=== PATIENT | female | born 1930 | race Caucasian/White ===

== ENCOUNTER 2016-10-20 13:21 | Emergency (ER) | payer MEDICARE, OTHER ==
[2016-10-20 13:54] LABS: Hemoglobin 8.7 gm/dL (12.5-16.0); Mean Cell Volume 81.5 fl (78-100); Mean Corpuscular Hemoglobin 24.4 pg (27-31); Mean Platelet Volume 8.4 fl (6.0-9.5); Neutrophil # 10.8 K/mm3 (1.3-6.0); Neutrophil % 83.5 % (42-75.0); Platelet Count 417 K/mm3 (150-450); Red Blood Count 3.56 M/mm3 (4.2-5.4); Red Cell Distribution Width 15.3 % (11.5-14.0)
[2016-10-20 14:11] LABS: Albumin * 3.4 gm/dl (3.4-5.0); Anion Gap 11.2 mmol/L (6.8-13.8); BUN/Creatinine Ratio 12.2 (9.0-21.6); Bilirubin, Total 0.2 mg/dL (0.0-1.1); Ca. Corrected For Albumin 9.3 mg/dL (8.4-10.2); Calcium * 9.1 mg/dL (7.9-10.9); Carbon Dioxide 30.1 mmol/L (24-32.6); Potassium 4.3 mmol/L (3.4-4.6)
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
[2016-10-20 14:46] LABS: Urine Bilirubin Negative (NEGATIVE); Urine Blood Negative /ul (NEGATIVE); Urine Ketone Negative (NEGATIVE); Urine Protein Negative (NEGATIVE); Urine Specific Gravity 1.025 SP.GR. (1.005-1.010); Urine Urobilinogen Normal (NORMAL)
[2016-10-20 14:55] LABS: Urine Appearance Cloudy; Urine Color Yellow; Urine Nitrite Positive (NEGATIVE)
[2016-10-20 14:56] LABS: Urine Bacteria 4+; Urine RBC None Seen /hpf (0-5)
[2016-10-20 16:56] VITALS: BP 158/63
== END 2016-10-20 17:42 | disposition short-term general hospital (02) ==
LOC: ER 13:21
DX: N30.00 Acute cystitis without hematuria (principal)

== ENCOUNTER 2017-03-23 10:22 | Inpatient (IN) | payer MEDICARE, OTHER ==
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
[2017-03-23 11:14] LABS: Hematocrit 38.6 % (37.0-47.0); Hemoglobin 12.9 gm/dL (12.5-16.0); Mean Cell Volume 97.5 fl (78-100); Mean Corpuscular Hemoglobin 32.6 pg (27-31); Mean Corpuscular Hgb Conc 33.4 g/dl (32-36); Neutrophil # 6.1 K/mm3 (1.3-6.0); Neutrophil % 69.4 % (42-75.0); Platelet Count 327 K/mm3 (150-450); Red Blood Count 3.96 M/mm3 (4.2-5.4); Red Cell Distribution Width 12.7 % (11.5-14.0); White Blood Count 8.8 K/mm3 (4.0-10.5)
[2017-03-23 11:28] LABS: Albumin * 3.3 gm/dl (3.4-5.0); Anion Gap 8.6 mmol/L (6.8-13.8); Bilirubin, Total 0.2 mg/dL (0.0-1.1); Ca. Corrected For Albumin 9.2 mg/dL (8.4-10.2); Carbon Dioxide 31.8 mmol/L (24-32.6); Potassium 4.4 mmol/L (3.4-4.6); Total Protein 6.5 gm/dL (6.2-8.2)
[2017-03-23] MEDS ORDERED: HYDROmorphone HCL 1 MG/ML DISP.SYRIN IV ONE (11:35)
[2017-03-23] MEDS ORDERED: HYDROmorphone HCL 2 MG/ML VIAL ONE (12:01)
[2017-03-23 12:03] LABS: Urine Appearance Cloudy; Urine Color Yellow
[2017-03-23 12:05] LABS: Urine Bacteria 2+; Urine Bilirubin Negative (NEGATIVE); Urine Blood Negative /ul (NEGATIVE); Urine Ketone Negative (NEGATIVE); Urine Nitrite Negative (NEGATIVE); Urine Protein Negative (NEGATIVE); Urine RBC None Seen /hpf (0-5); Urine Urobilinogen Normal (NORMAL); Urine WBC 0-5 /hpf (0-5)
[2017-03-23] MEDS ORDERED: KETOROLAC TROMETHAMINE 30 MG/ML VIAL ONE (12:14)
--- NOTE | 2017-03-23 12:29 | HP ---
Chief Complaint - Chief Complaint Date of Service: 03/23/17 Time of Service: 12:24 Chief Complaint: fall/left hip pain History of Present Illness: Hanna Sumner, is an 86-year-old white female, resident of the [facility], patient of Dr. Hoover, with past medical history of Alzheimer's dementia, anxiety depression, hyperlipidemia who was admitted on 03/23/2017 because of a fall and left hip pain. Earlier this morning the patient was in on her recliner when she was told that it was time to do her exercises. She stood up and as she was going to her walker, lost her balance and fell down. She immediately had left hip pain and couldn't stand by herself. She was brought to our emergency room where she was found to have a left intertrochanteric fracture on x-ray. She was then admitted for further orthopedic intervention. - Patient's Past Medical History Patient History - Medical: No pertinent hx, Alzheimer's Disease, Dementia, Depression Patient History - Cardiac/Respiratory: COPD, Hyperlipidemia - Social History Living Situations: long term Psych History: Hx of Depression Smoking Status: Current some day smoker Alcohol Use: none Drug Use: none - Immunizations Immunizations Up to Date: Yes Hx Pneumococcal Vaccination: More Information Required to Determine History of Influenza Vaccine: More Information Required to Determine Review Of Systems (GEN) - Review of Systems Generalized/Overall Review: Absent: Weakness, Chills, Fever EENTM: Present: No Symptoms Reported Respiratory: Absent: Cough, Shortness of Breath Cardiac: Absent: Chest Pain, Edema, Palpitations Abdominal: Absent: Nausea, Vomiting Genitourinary: Absent: Urgency, Frequency Musculoskeletal: Present: Joint Pain Immunizations: IMMUNIZATION HX Immunizations Up to Date Yes History of Influenza Vaccine More Information Required Hx Pneumococcal Vaccination More Information Required Allergies/Adverse Reactions: Allergies Allergy/AdvReac Type Severity Reaction Status Date / Time No Known Allergies Allergy Verified 10/20/16 13:28 Home Medications: HOME MEDICATIONS Acetaminophen 500 mg PO BID PRN 03/23/17 [Last Taken Unknown] Ascorbic Acid [Vitamin C] 500 mg PO DAILY 03/23/17 [Last Taken Unknown] Aspirin [Aspirin Chewable] 81 mg PO DAILY 03/23/17 [Last Taken Unknown] Calcium Carbonate/Vitamin D3 [Calcium 600 + D3 Softgel] 1 each PO 03/23/17 [ Last Taken Unknown] Cholecalciferol (Vitamin D3) [Vitamin D3] 1,000 unit PO DAILY 03/23/17 [Last Taken Unknown] Citalopram Hydrobromide [Citalopram HBr] 20 mg PO 03/23/17 [Last Taken Unknown] Cyanocobalamin [Vitamin B-12] 1,000 mcg PO DAILY 03/23/17 [Last Taken Unknown] Donepezil HCl [Aricept] 5 mg PO 03/23/17 [Last Taken Unknown] Erythromycin Ethylsuccinate [E.e.s. 400] 400 mg PO 03/23/17 [Last Taken Unknown] Ferrous Sulfate [Iron] 325 mg PO 03/23/17 [Last Taken Unknown] Folic Acid 1 mg PO DAILY 03/23/17 [Last Taken Unknown] Melatonin 1 mg PO HS PRN 03/23/17 [Last Taken Unknown] [place]-3 Fatty Acids/Fish Oil [Fish Oil 1,000 mg Capsule] 1 each PO DAILY [Last Taken Unknown] traMADol HCL [Tramadol HCl] 25 mg PO 03/23/17 [Last Taken Unknown] Exam - Exam Vital Signs: Vital Signs - Last Taken Temp 36.5 C 03/23/17 10:24 Pulse 69 03/23/17 11:35 Resp 26 H 03/23/17 11:35 BP 187/72 03/23/17 11:35 Pulse Ox 95 03/23/17 11:35 Constitutional: Present: Alert, Oriented x3, Cooperative, Elderly ENT Exam: Present: hearing grossly normal Eye Exam: bilateral eye: normal inspection, PERRL, EOMI Neck: Present: supple Back Exam: Present: normal inspection Respiratory: Present: normal breath sounds, No rales, No wheezing Cardiovascular/Chest: Present: regular rate, rhythm, no JVD, no murmur Abdomen: Present: Normal bowel sounds, soft, nontender, nondistended Extremity: Present: no calf tenderness, pedal edema Diagnostic Studies: Abnormal Lab Results 03/23/17 Range/Units 11:46 Urine Bacteria 2+ H (NONE) Laboratory Results WBC 8.8 K/mm3 (4.0-10.5) 03/23/17 11:00 RBC 3.96 M/mm3 (4.2-5.4) L 03/23/17 11:00 Hgb 12.9 gm/dL (12.5-16.0) 03/23/17 11:00 Hct 38.6 % (37.0-47.0) 03/23/17 11:00 MCV 97.5 fl (78-100) 03/23/17 11:00 MCH 32.6 pg (27-31) H 03/23/17 11:00 MCHC 33.4 g/dl (32-36) 03/23/17 11:00 RDW 12.7 % (11.5-14.0) 03/23/17 11:00 Plt Count 327 K/mm3 (150-450) 03/23/17 11:00 MPV 9.0 fl (6.0-9.5) 03/23/17 11:00 Immature Gran % (Auto) 0.60 % (0.001-0.429) H 03/23/17 11:00 Immature Gran # (Auto) 0.05 K/mm3 (0.000-0.0310) H 03/23/17 11:00 Neutrophils % 69.4 % (42-75.0) 03/23/17 11:00 Lymphocytes % 18.2 % (20-51) L 03/23/17 11:00 Monocytes % 9.7 % (0.0-9) H 03/23/17 11:00 Eosinophils % 1.3 % (0.0-3.0) 03/23/17 11:00 Basophils % 0.8 % (0.0-1.0) 03/23/17 11:00 Nucleated RBC % 0.0 k/mm3 (0-1) 03/23/17 11:00 Neutrophils # 6.1 K/mm3 (1.3-6.0) H 03/23/17 11:00 Lymphocytes # 1.6 k/mm3 (1.5-3.5) 03/23/17 11:00 Monocytes # 0.9 k/mm3 (0.0-1.0) 03/23/17 11:00 Eosinophils # 0.1 k/mm3 (0.0-0.7) 03/23/17 11:00 Absolute Basophils 0.1 k/mm3 (0.0-0.1) 03/23/17 11:00 Sodium 142 mmol/L (132-142) 03/23/17 11:00 Plasma Sodium 142 mmol/L (130-142) 03/23/17 11:00 Potassium 4.4 mmol/L (3.4-4.6) 03/23/17 11:00 Chloride 106 mmol/L (97-106) 03/23/17 11:00 Carbon Dioxide 31.8 mmol/L (24-32.6) 03/23/17 11:00 Anion Gap 8.6 mmol/L (6.8-13.8) 03/23/17 11:00 BUN 10 mg/dL (3-23) 03/23/17 11:00 Creatinine 0.91 mg/dL (0.4-1.4) 03/23/17 11:00 Est GFR (Non-Af Amer) 62 mL/min (60-130) 03/23/17 11:00 BUN/Creatinine Ratio 11.0 (9.0-21.6) 03/23/17 11:00 Random Glucose 96 mg/dL (70-110) 03/23/17 11:00 Calcium 9.0 mg/dL (7.9-10.9) 03/23/17 11:00 Calcium Adj for Albumin 9.2 mg/dL (8.4-10.2) 03/23/17 11:00 Total Bilirubin 0.2 mg/dL (0.0-1.1) 03/23/17 11:00 AST 17 U/L (0-48) 03/23/17 11:00 ALT 18 U/L (19-67) L 03/23/17 11:00 Alkaline Phosphatase 95 U/L (50-170) 03/23/17 11:00 Total Protein 6.5 gm/dL (6.2-8.2) 03/23/17 11:00 Albumin 3.3 gm/dl (3.4-5.0) L 03/23/17 11:00 Urine Color Yellow 03/23/17 11:46 Urine Appearance Cloudy 03/23/17 11:46 Urine pH 6.0 pH (5.0-7.0) 03/23/17 11:46 Ur Specific [place] 1.020 SP.GR. (1.005-1.010) 03/23/17 11:46 Urine Protein Negative mg/dL (NEGATIVE) 03/23/17 11:46 Urine Glucose (UA) Negative mg/dL (NEGATIVE) 03/23/17 11:46 Urine Ketones Negative mg/dL (NEGATIVE) 03/23/17 11:46 Urine Blood Negative /ul (NEGATIVE) 03/23/17 11:46 Urine Nitrate Negative (NEGATIVE) 03/23/17 11:46 Urine Bilirubin Negative mg/dl (NEGATIVE) 03/23/17 11:46 Urine Urobilinogen Normal EU/dl (NORMAL) 03/23/17 11:46 Ur Leukocyte Esterase Negative /ul (NEGATIVE) 03/23/17 11:46 Urine RBC None seen /hpf (0-5) 03/23/17 11:46 Urine WBC 0-5 /hpf (0-5) 03/23/17 11:46 Ur Epithelial Cells None seen /hpf (0-5) 03/23/17 11:46 Urine Bacteria 2+ (NONE) H 03/23/17 11:46 Urine Culture Comments No culture indicated 03/23/17 11:46 Assessment/Plan - Assessment/Plan (1) Hip fracture Assessment: left intertrochanteric fracure. Her CXR no acute cardiopulmonary findings, EKG showed NSR with LVH, CBC, CMP were essentially WNL. She is medically stable to undergo anticipated proceedure of CRIF of her left hip fracture. Problem: Acute Qualifiers: Encounter type: initial encounter Fracture type: closed Laterality: left Qualified Code(s): S72.002A - Fracture of unspecified part of neck of left femur, initial encounter for closed fracture (2) Dementia Assessment: continue with home medications Problem: Acute Qualifiers: Dementia type: Alzheimer's disease (3) Hyperlipidemia Assessment: continue with home medications Problem: Acute (4) Depression Assessment: continue with home medications. Problem: Acute
[2017-03-23] MEDS ORDERED: Melatonin 1 MG PO PRN (12:40)
[2017-03-23] MEDS ORDERED: traMADol HCL 50 MG TABLET PO PRN (12:40)
[2017-03-23] MEDS ORDERED: ACETAMINOPHEN 500 MG TABLET PO PRN (12:45)
[2017-03-23] MEDS ORDERED: FLU VACC QS2017-18(6MOS UP)/PF 60 MCG/0.5 ML SYRINGE IM ONE (14:51)
[2017-03-23] MEDS: HYDROmorphone HCL 2 MG/ML VIAL IV PRN (16:05)
[2017-03-24] MEDS: HYDROmorphone HCL 2 MG/ML VIAL IV PRN ×3 (02:01→14:20)
[2017-03-24] MEDS: NORMAL SALINE 1,000 ML IV PRN ×2 (06:48→10:40)
[2017-03-24] MEDS: FOLIC ACID 1 MG TABLET PO SCH (08:50)
[2017-03-24] MEDS: CITALOPRAM HYDROBROMIDE 20 MG TABLET PO SCH (08:50)
[2017-03-24] MEDS: DONEPEZIL HCL 10 MG TABLET PO SCH (08:50)
[2017-03-24] MEDS: CYANOCOBALAMIN 1,000 MCG TABLET PO SCH (08:50)
--- NOTE | 2017-03-24 09:14 | PN ---
Subjective - Date and Time Seen Date: 03/24/17 Time: 09:12 Subjective Narrative: She is awaiting surgery today. She says her hip hurts. Objective - Review of Systems Generalized/Overall Review: Denies: Chills, Fever EENTM: Reports: No Symptoms Reported Respiratory: Denies: Cough, Shortness of Breath Cardiac: Denies: Chest Pain, Edema, Palpitations Abdominal: Denies: Nausea, Vomiting Genitourinary Symptoms: Denies: Urgency, Frequency Musculoskeletal Complaints: Reports: Joint Pain - Vitals Vitals: Last Vital Signs Temp 36.8 C 03/24/17 06:00 Pulse 88 03/24/17 06:00 Resp 18 03/24/17 06:00 BP 156/63 03/24/17 06:00 Pulse Ox 97 03/24/17 06:00 - Abnormal Lab Findings Abnormal Lab Findings: Abnormal Lab Results 03/23/17 Range/Units 11:46 Urine Bacteria 2+ H (NONE) - Exam Constitutional: Present: Alert, Oriented x3, Cooperative ENT Exam: Present: hearing grossly normal Neck: Present: supple Respiratory: Present: decreased breath sounds, No rales, No wheezing Cardiovascular/Chest: Present: regular rate, rhythm, no JVD, no murmur Abdomen: Present: soft, nontender, nondistended Extremity: Present: no pedal edema, no calf tenderness Cauti Physician Documentation - Urinary Catheter Management Urethral (Armendariz) Date of Insertion: 03/23/17 Time of Insertion: 11:35 Assessment/Plan - Problems/Diagnosis (1) Hip fracture Problem: Acute Qualifiers: Encounter type: initial encounter Fracture type: closed Laterality: left Qualified Code(s): S72.002A - Fracture of unspecified part of neck of left femur, initial encounter for closed fracture Narrative: for surgery today (2) Dementia Problem: Acute Qualifiers: Dementia type: Alzheimer's disease (3) Hyperlipidemia Problem: Acute (4) Depression Problem: Acute
[2017-03-24] MEDS ORDERED: ceFAZolin SODIUM 1 GM in DEXTROSE 5 % IN WATER 100 ML IV ONE ×2 (09:51)
--- NOTE | 2017-03-24 10:03 | CONS ---
[facility] - General Date of Service: 03/24/17 Narrative: Consultation for left hip fracture. Patient's 86-year-old female is a resident of [facility] who sustained a fall at there facility. Hanna has not a good historian. She reported left hip pain and ability to ambulate. She was brought into the emergency department and found to have left hip fracture. She is admitted for pain control and treatment. - History of Present Illness Allergies/Adverse Reactions: Allergies No Known Allergies Allergy (Verified 03/23/17 14:03) Home Medications: Home Medications Medication Instructions Recorded Last Taken Acetaminophen 1,000 mg PO BID PRN 03/23/17 Unknown Ascorbic Acid [Vitamin C] 500 mg PO DAILY 03/23/17 Unknown Aspirin [Aspirin Chewable] 81 mg PO DAILY 03/23/17 Unknown Calcium Carbonate/Vitamin D3 1 each PO DAILY 03/23/17 Unknown [Calcium 600 + D3 Softgel] Cholecalciferol (Vitamin D3) 1,000 unit PO DAILY 03/23/17 Unknown [Vitamin D3] Citalopram Hydrobromide 20 mg PO DAILY 03/23/17 Unknown [Citalopram HBr] Cyanocobalamin [Vitamin B-12] 1,000 mcg PO DAILY 03/23/17 Unknown Donepezil HCl [Aricept] 5 mg PO HS 03/23/17 Unknown Erythromycin Ethylsuccinate 400 mg PO DAILY 03/23/17 Unknown [E.e.s. 400] Ferrous Sulfate [Iron] 325 mg PO DAILY 03/23/17 Unknown Folic Acid 1 mg PO DAILY 03/23/17 Unknown Melatonin 1 mg PO HS PRN 03/23/17 Unknown [place]-3 Fatty Acids/Fish Oil [Fish 1,000 mg PO DAILY 03/23/17 Unknown Oil 1,000 mg Capsule] traMADol HCL [Tramadol HCl] 25 mg PO Q4H PRN 03/23/17 Unknown - Patient's Past Medical History Patient History - Medical: No pertinent hx, Alzheimer's Disease, Dementia, Depression Patient History - Cardiac/Respiratory: COPD, Hyperlipidemia Patient History - Cancer: No Hx of Cancer Patient History - Surgical Procedures: Appendectomy, Cholecystectomy, Colonoscopy Patient History - Other: None LMP (females 10-50): Menopausal - Family History Mother Family History - Medical: History Unknown Family History - Cardiac/Respiratory: History Unknown Family History - Cancer: History Unknown Father Family History - Medical: History Unknown Family History - Cardiac/Respiratory: History Unknown Family History - Cancer: History Unknown Sister Family History - Medical: History Unknown Family History - Cardiac/Respiratory: History Unknown Family History - Cancer: History Unknown - Social History Living Situations: detention Abuse History: No History of abuse Psych History: Hx of Depression Smoking Status: Current some day smoker Have you smoked in the past 12 months: Yes Do you dip or chew tobacco: No Patient requests Smoking Cessation Consult: No Initiate information on Smoking Cessation: No Alcohol Use: none Drug Use: none - Immunizations Immunizations Up to Date: Yes Hx Pneumococcal Vaccination: More Information Required to Determine History of Influenza Vaccine: More Information Required to Determine Medications - Medications Current Medications: Current Medications Citalopram Hydrobromide (Celexa) 20 mg PO DAILY JORGITO Stop: 04/23/17 09:01 Last Admin: 03/24/17 08:50 Dose: Not Given Cyanocobalamin (Vitamin B-12) 1,000 mcg PO DAILY JORGITO Stop: 04/23/17 09:01 Last Admin: 03/24/17 08:50 Dose: Not Given Donepezil HCl (Aricept) 5 mg PO DAILY JORGITO Stop: 04/23/17 09:01 Last Admin: 03/24/17 08:50 Dose: Not Given Folic Acid (Folic Acid) 1 mg PO DAILY JORGITO Stop: 04/23/17 09:01 Last Admin: 03/24/17 08:50 Dose: Not Given Hydromorphone HCl (Dilaudid) 1 mg IV Q4H PRN PRN Reason: Pain Stop: 04/22/17 12:45 Last Admin: 03/24/17 06:53 Dose: 1 mg Sodium Chloride (Sodium Chloride 0.9%) 1,000 mls @ 100 mls/hr IV .Q10H PRN PRN Reason: HYDRATION Stop: 04/23/17 06:41 Last Admin: 03/24/17 06:48 Dose: 100 mls/hr Physical Examination - Exam Narrative: Patient is alert. Not oriented. Examination of left lower extremity reveals 1 + dorsalis pedis pulse. She is able to wiggle her toes and plantarflex/ dorsiflex left ankle. She reports left groin pain with logroll test of the left lower extremity. She reports no pain in the foot ankle or lower leg with palpation. Left hip films show intertrochanteric hip fracture. Vital Signs: Vital Signs - Last Taken Temp 36.8 C 03/24/17 06:00 Pulse 88 03/24/17 06:00 Resp 18 03/24/17 06:00 BP 156/63 03/24/17 06:00 Pulse Ox 97 03/24/17 06:00 O2 Oxygen Delivery Method Room Air - Results and Findings: Lab/Microbiology results last 24 hrs: Abnormal/Pending Laboratory Last 24 HRS 03/23/17 11:46 Urine Bacteria 2+ H Culture 03/23/17 13:25 - Final Nares MRSA Negative - Assessments/Findings (1) Hip fracture Diagnosis(s): Pending medical clearance cephalomedullary fixation, we'll obtain consents from power of regulatory attorney,will contact her daughter Dunia Alfrediffered [phone] regarding her mother's injury and treatment options, she will have a gram of Ancef preop. Problem: Acute Qualifiers: Encounter type: initial encounter Fracture type: closed Laterality: left Qualified Code(s): S72.002A - Fracture of unspecified part of neck of left femur, initial encounter for closed fracture (2) Dementia Problem: Chronic Qualifiers: Dementia type: Alzheimer's disease (3) Hyperlipidemia Problem: Chronic
[2017-03-24] MEDS ORDERED: RINGER'S SOLUTION,LACTATED 1,000 ML IV ONE (11:30)
[2017-03-24] MEDS ORDERED: MAG HYDROX/ALUMINUM HYD/SIMETH 30 ML UDC PO PRN (11:41)
[2017-03-24] MEDS ORDERED: ZOLPIDEM TARTRATE 5 MG TABLET PO PRN (11:41)
[2017-03-24] MEDS ORDERED: DEXTROSE 5%-LACTATED RINGERS 1,000 ML IV PRN (11:41)
[2017-03-24] MEDS ORDERED: MAGNESIUM HYDROXIDE 30 ML UDC PO PRN (11:41)
--- NOTE | 2017-03-24 11:45 | OR ---
Operative Report - Dictated Report Narrative: Date: 03/24/2017 Surgeon: Diego Jones M.D. Blister Pack Operator: Ashish Wang PA-C Preoperative diagnosis: Left Intertrochanteric femur fracture Postoperative diagnosis: Left Intertrochanteric femur fracture Operations and procedures: 1. Closed reduction, cephalo-medullary fixation left intertrochanteric femur fracture 2. Intraoperative interpretation of radiographs Anesthesia: Spinal Specimens: None Estimated blood loss: 50 Milliliters Retained implants: [employer] Trigen InterTAN 130 degree size 10 mm by 18 centimeter nail with 105 millimeter lag screw and 100 millimeter compression screw, with distal locking screw Complications: None Indications for procedure: Mrs. Sumner is a 86-year-old female who injured the left leg after ground- level fall. They were admitted to the hospital after being evaluated in the emergency department. Once the medical provider felt that they were stable for surgical treatment, the risks and benefits alternatives were discussed. The risks of , blood clots, bleeding, infection, nerve/tendon/blood vessel injury, malunion, nonunion, failure of implants, painful implants, arthrosis, and need for additional procedures were discussed. The extremity was marked and consent was obtained on the floor. Procedure: After marking the operative extremity on the floor, the patient was taken to the operating room. A timeout was performed. IV antibiotics consisting of Ancef were administered. A spinal anesthetic was induced by anesthesia, and the patient was then placed onto a fracture table with a well-padded perineal post. The nonoperative leg was placed in a well-padded traction boot in slight extension without any traction with an SCD on the leg. The operative leg was placed in a well-padded traction boot. Longitudinal traction, internal rotation , and flexion were utilized in order to reduce the fracture. Preliminary images were attained utilizing C-arm in both the AP and lateral views. This confirmed that we had obtained adequate visualization of the fracture as well as reduction. Next the hip was then prepped and draped in a standard sterile fashion. Next the guidewire was placed percutaneously proximal to the greater trochanter to diallo a starting point at the tip of the greater trochanter centered on the lateral view. This was passed down to the level below the lesser trochanter. A scalpel was utilized in order to dissect down to the greater trochanter in order to place the soft tissue protector down to bone. The entry drill was then placed down the proximal femur to the level of the lesser trochanter. The proper size nail was then selected and impacted into place. The outrigger was utilized in order to confirm the appropriate depth of the nail. Using the alignment device on the outrigger, a chanel incision was made over the lateral femur. Sharp dissection was carried through the iliotibial band down to the proximal femur. The guidewire was was placed into the femoral head in a center-center position on AP and lateral views. The tip-apex distance of less than 25 mm combined was obtained. Once we felt that we had placed a guidewire in the appropriate position, it was measured. Next the compression screw site was drilled through the lateral femoral cortex. This was then drilled down to the appropriate depth, again confirming that we are within the confines the bone. The derotational bar was then placed and the lag screw was drilled. The lag screw was then secured in place seating fully ensuring that we were within the confines of the bone. The compression screw was then inserted allowing for compression while releasing the traction on the leg. Using C-arm this was visualized to allow for compression across the fracture site. Once is felt that we had adequately stabilized the intertrochanteric fracture, the distal interlocking screw was placed in a dynamic position. It was confirmed to be the appropriate length and within the nail on both AP and lateral views. The nail was secured allowing for controlled compression and the outrigger was removed. The wounds were then thoroughly irrigated. Final images were obtained. The hip was placed through range of motion and showed no crepitance. The deep fascia was closed with 0 Vicryl, the subcutaneous tissue with 3-0 Vicryl, and the skin was closed with david. Sterile dressings of Xeroform, 4 x 4, ABD, and tape were applied. All sponge, sharp, and instrument counts were correct prior to closing the wounds. The patient was then awoken and transferred to the postanesthesia care unit in stable condition.
[2017-03-24 13:51] LABS: Prothrombin Time (Patient) 10.3 Seconds (9.4-11.4)
[2017-03-24 14:09] LABS: INR 0.99 INR (0.90-1.10)
[2017-03-24] MEDS: ceFAZolin SODIUM 1 GM in DEXTROSE 5 % IN WATER 100 ML IV SCH ×4 (14:20→20:26)
[2017-03-24] MEDS ORDERED: NORMAL SALINE 250 ML IV ONE (16:36)
[2017-03-24] MEDS: WARFARIN SODIUM 5 MG TABLET PO SCH (18:38)
[2017-03-24] MEDS: SENNOSIDES/DOCUSATE SODIUM 1 TAB TABLET PO SCH (20:30)
[2017-03-24] MEDS: HYDROcodone/ACETAMINOPHEN 1 EACH TABLET PO PRN (20:32)
[2017-03-25] MEDS: HYDROcodone/ACETAMINOPHEN 1 EACH TABLET PO PRN ×5 (00:24→23:40)
[2017-03-25] MEDS: NORMAL SALINE 1,000 ML IV PRN ×2 (00:31→17:15)
[2017-03-25] MEDS: ceFAZolin SODIUM 1 GM in DEXTROSE 5 % IN WATER 100 ML IV SCH ×2 (02:59)
[2017-03-25 06:04] LABS: Mean Cell Volume 97.4 fl (78-100); Mean Corpuscular Hemoglobin 32.3 pg (27-31); Mean Corpuscular Hgb Conc 33.2 g/dl (32-36); Mean Platelet Volume 9.7 fl (6.0-9.5); Platelet Count 236 K/mm3 (150-450); Red Blood Count 2.29 M/mm3 (4.2-5.4); Red Cell Distribution Width 12.4 % (11.5-14.0); White Blood Count 9.3 K/mm3 (4.0-10.5)
[2017-03-25 06:11] LABS: Prothrombin Time (Patient) 12.4 Seconds (9.4-11.4)
[2017-03-25 06:12] LABS: Hematocrit 22.3 % (37.0-47.0); Hemoglobin 7.4 gm/dL (12.5-16.0); INR 1.19 INR (0.90-1.10)
[2017-03-25 06:18] LABS: BUN/Creatinine Ratio 14.6 (9.0-21.6); Carbon Dioxide 26.7 mmol/L (24-32.6); Estimated Creat Clear 43.4; Potassium 3.7 mmol/L (3.4-4.6)
[2017-03-25] MEDS ORDERED: ACETAMINOPHEN 325 MG TABLET PO ONE (07:07)
[2017-03-25] MEDS ORDERED: diphenhydrAMINE HCL 50 MG/ML VIAL IV ONE (07:07)
--- NOTE | 2017-03-25 08:14 | PN ---
Subjective - Date and Time Seen Date: 03/25/17 Time: 08:05 Subjective Narrative: Patient is AAO x1. Confused. Has dizziness. Hb 7.4. Objective - Review of Systems Generalized/Overall Review: Reports: No Symptoms Reported EENTM: Reports: No Symptoms Reported Respiratory: Reports: No Symptoms Reported Cardiac: Reports: No Symptoms Reported Abdominal: Reports: No Symptoms Reported Genitourinary Symptoms: Reports: No Symptoms Reported Musculoskeletal Complaints: Reports: No Symptoms Reported Neurological: Reports: No Symptoms Reported Skin: Reports: No Symptoms Reported Endocrine: Reports: No Symptoms Reported Misc: All systems neg except as marked - ROS unreliable. Confused. - Vitals Vitals: Last Vital Signs Temp 36.1 C L 03/25/17 06:25 Pulse 88 03/25/17 06:25 Resp 18 03/25/17 06:25 BP 144/55 03/25/17 06:25 Pulse Ox 98 03/25/17 06:25 - Abnormal Lab Findings Abnormal Lab Findings: Abnormal Lab Results 03/25/17 03/25/17 03/25/17 Range/Units 05:30 05:30 05:30 RBC 2.29 L (4.2-5.4) M/mm3 Hgb 7.4 L* D (12.5-16.0) gm/dL Hct 22.3 L* D (37.0-47.0) % MCH 32.3 H (27-31) pg MPV 9.7 H (6.0-9.5) fl PT 12.4 H (9.4-11.4) Seconds INR (Anticoag Therapy) 1.19 H (0.90-1.10) INR Random Glucose 123 H (70-110) mg/dL - Exam Constitutional: Present: Alert - AAO x 1, Elderly ENT Exam: Present: hearing grossly normal Neck: Present: supple Respiratory: Present: normal breath sounds, No rales, No wheezing Cardiovascular/Chest: Present: regular rate, rhythm, no JVD, no murmur Abdomen: Present: soft, nontender, nondistended Extremity: Present: no calf tenderness, pedal edema Cauti Physician Documentation - Urinary Catheter Management Urethral (Armendariz) Date of Insertion: 03/23/17 Time of Insertion: 11:35 Date of Removal: 03/25/17 Time of Removal: 07:10 Assessment/Plan - Problems/Diagnosis (1) Acute blood loss anemia Problem: Acute Narrative: symptomatic. will get 2 units BT. (2) Hip fracture Problem: Acute Qualifiers: Encounter type: initial encounter Fracture type: closed Laterality: left Qualified Code(s): S72.002A - Fracture of unspecified part of neck of left femur, initial encounter for closed fracture Narrative: POD # 1. Tmax 37.8. for PT/OT. (3) Dementia Problem: Chronic Qualifiers: Dementia type: Alzheimer's disease (4) Hyperlipidemia Problem: Chronic (5) Depression Problem: Acute
[2017-03-25] MEDS ORDERED: diphenhydrAMINE HCL 50 MG/ML VIAL ONE (08:53)
[2017-03-25] MEDS ORDERED: ACETAMINOPHEN 325 MG TABLET ONE (08:53)
[2017-03-25] MEDS: FOLIC ACID 1 MG TABLET PO SCH (09:14)
[2017-03-25] MEDS: CITALOPRAM HYDROBROMIDE 20 MG TABLET PO SCH (09:14)
[2017-03-25] MEDS: DONEPEZIL HCL 10 MG TABLET PO SCH (09:15)
[2017-03-25] MEDS: CYANOCOBALAMIN 1,000 MCG TABLET PO SCH (09:15)
--- NOTE | 2017-03-25 10:06 | PN ---
Subjective - Date and Time Seen Date: 03/25/17 Time: 10:01 Subjective Narrative: S: alert, in chair, confused but follows commands. Reports hip pain with activity PE - left leg: thigh swollen but soft, wounds with minimal serous drainage, moving toes/ankle, mild pain with leg ROM Objective - Vitals Vitals: Last Vital Signs Temp 37.3 C 03/25/17 09:32 Pulse 84 03/25/17 09:32 Resp 20 03/25/17 09:32 BP 136/56 03/25/17 09:32 Pulse Ox 94 03/25/17 09:32 - Abnormal Lab Findings Abnormal Lab Findings: Abnormal Lab Results 03/25/17 03/25/17 03/25/17 Range/Units 05:30 05:30 05:30 RBC 2.29 L (4.2-5.4) M/mm3 Hgb 7.4 L* D (12.5-16.0) gm/dL Hct 22.3 L* D (37.0-47.0) % MCH 32.3 H (27-31) pg MPV 9.7 H (6.0-9.5) fl PT 12.4 H (9.4-11.4) Seconds INR (Anticoag Therapy) 1.19 H (0.90-1.10) INR Random Glucose 123 H (70-110) mg/dL Crossmatch 03/25/17 Range/Units 07:25 RBC (4.2-5.4) M/mm3 Hgb (12.5-16.0) gm/dL Hct (37.0-47.0) % MCH (27-31) pg MPV (6.0-9.5) fl PT (9.4-11.4) Seconds INR (Anticoag Therapy) (0.90-1.10) INR Random Glucose (70-110) mg/dL Crossmatch See Detail Cauti Physician Documentation - Urinary Catheter Management Urethral (Armendariz) Date of Insertion: 03/23/17 Time of Insertion: 11:35 Date of Removal: 03/25/17 Time of Removal: 07:10 Assessment/Plan - Problems/Diagnosis (1) Intertrochanteric fracture of left femur Problem: Acute Qualifiers: Encounter type: subsequent encounter Fracture type: closed Fracture alignment: displaced Fracture healing: with routine healing Qualified Code(s ): S72.142D - Displaced intertrochanteric fracture of left femur, subsequent encounter for closed fracture with routine healing Narrative: Confused but doing well. WBAT, ROM as emerald. Will need 6 weeks of DVT prophylaxis, ice to hip, keep dry, change with gauze and tape tomorrow, continue PT/OT, ancef x 24 hrs
[2017-03-25] MEDS: ENOXAPARIN SODIUM 40 MG/0.4 ML SYRG SC SCH (10:08)
[2017-03-25] MEDS: HYDROmorphone HCL 2 MG/ML VIAL IV PRN (15:06)
[2017-03-25] MEDS ORDERED: LORazepam 2 MG/ML DISP.SYRIN IV PRN (16:17)
[2017-03-25] MEDS: WARFARIN SODIUM 5 MG TABLET PO SCH (16:40)
[2017-03-25 17:11] LABS: Hematocrit 31.6 % (37.0-47.0); Hemoglobin 10.8 gm/dL (12.5-16.0)
[2017-03-25] MEDS: SENNOSIDES/DOCUSATE SODIUM 1 TAB TABLET PO SCH (21:20)
[2017-03-26] MEDS: NORMAL SALINE 1,000 ML IV PRN (03:43)
[2017-03-26 05:56] LABS: Hematocrit 24.7 % (37.0-47.0); Hemoglobin 8.6 gm/dL (12.5-16.0); Mean Cell Volume 91.1 fl (78-100); Mean Corpuscular Hemoglobin 31.7 pg (27-31); Mean Corpuscular Hgb Conc 34.8 g/dl (32-36); Mean Platelet Volume 10.3 fl (6.0-9.5); Platelet Count 210 K/mm3 (150-450); Red Blood Count 2.71 M/mm3 (4.2-5.4); Red Cell Distribution Width 15.7 % (11.5-14.0)
[2017-03-26 06:06] LABS: Anion Gap 13.8 mmol/L (6.8-13.8); BUN/Creatinine Ratio 13.5 (9.0-21.6); Calcium * 8.4 mg/dL (7.9-10.9); Carbon Dioxide 23.5 mmol/L (24-32.6); Estimated Creat Clear 48.1; Potassium 4.3 mmol/L (3.4-4.6)
[2017-03-26 06:17] LABS: INR 3.46 INR (0.90-1.10)
--- NOTE | 2017-03-26 07:55 | PN ---
Subjective - Date and Time Seen Date: 03/26/17 Time: 07:54 Subjective Narrative: S: alert, in chair, confused but follows commands. Reports hip pain with activity PE - left leg: thigh swollen but soft, wounds without drainage, moving toes/ ankle, mild pain with leg ROM P: She is status post left hip cephalo-medullary fixation postoperative day 2. Weightbearing as tolerated and range of motion as tolerated. Keep her wounds clean and dry and covered. She will need 6 weeks of DVT prophylaxis. I'll see her back in 2 weeks post discharge. Utilize RICHARD hose on her operative leg and change dressings every 2-3 days dry gauze and tape. Objective - Vitals Vitals: Last Vital Signs Temp 36.4 C L 03/26/17 06:49 Pulse 116 H 03/26/17 06:49 Resp 18 03/26/17 06:49 BP 159/78 03/26/17 06:49 Pulse Ox 96 03/26/17 06:49 - Abnormal Lab Findings Abnormal Lab Findings: Abnormal Lab Results 03/25/17 03/25/17 03/26/17 Range/Units 07:25 17:10 05:45 WBC 16.0 H D (4.0-10.5) K/mm3 RBC 2.71 L (4.2-5.4) M/mm3 Hgb 10.8 L 8.6 L (12.5-16.0) gm/dL Hct 31.6 L 24.7 L (37.0-47.0) % MCH 31.7 H (27-31) pg RDW 15.7 H (11.5-14.0) % MPV 10.3 H (6.0-9.5) fl PT (9.4-11.4) Seconds INR (Anticoag Therapy) (0.90-1.10) INR Chloride (97-106) mmol/L Carbon Dioxide (24-32.6) mmol/L Random Glucose (70-110) mg/dL Crossmatch See Detail 03/26/17 03/26/17 Range/Units 05:45 05:45 WBC (4.0-10.5) K/mm3 RBC (4.2-5.4) M/mm3 Hgb (12.5-16.0) gm/dL Hct (37.0-47.0) % MCH (27-31) pg RDW (11.5-14.0) % MPV (6.0-9.5) fl PT 36.0 H (9.4-11.4) Seconds INR (Anticoag Therapy) 3.46 H (0.90-1.10) INR Chloride 107 H (97-106) mmol/L Carbon Dioxide 23.5 L (24-32.6) mmol/L Random Glucose 157 H (70-110) mg/dL Crossmatch Cauti Physician Documentation - Urinary Catheter Management Urethral (Armendariz) Date of Insertion: 03/23/17 Time of Insertion: 11:35 Date of Removal: 03/25/17 Time of Removal: 07:10 Assessment/Plan - Problems/Diagnosis (1) Intertrochanteric fracture of left femur Problem: Acute Qualifiers: Encounter type: subsequent encounter Fracture type: closed Fracture alignment: displaced Fracture healing: with routine healing Qualified Code(s ): S72.142D - Displaced intertrochanteric fracture of left femur, subsequent encounter for closed fracture with routine healing
[2017-03-26] MEDS ORDERED: LORazepam 2 MG/ML DISP.SYRIN IV PRN (09:39)
[2017-03-26] MEDS: DONEPEZIL HCL 10 MG TABLET PO SCH (09:53)
[2017-03-26] MEDS: CITALOPRAM HYDROBROMIDE 20 MG TABLET PO SCH (09:53)
[2017-03-26] MEDS: ENOXAPARIN SODIUM 40 MG/0.4 ML SYRG SC SCH (09:53)
[2017-03-26] MEDS: CYANOCOBALAMIN 1,000 MCG TABLET PO SCH (09:53)
[2017-03-26] MEDS: FOLIC ACID 1 MG TABLET PO SCH (09:53)
[2017-03-26] MEDS: HYDROcodone/ACETAMINOPHEN 1 EACH TABLET PO PRN ×2 (09:53→19:07)
--- NOTE | 2017-03-26 12:19 | PN ---
Subjective - Date and Time Seen Date: 03/26/17 Time: 12:16 Subjective Narrative: Patient is AAO x 2. She says she is feeling good. No complaints. POD # 2. Afebrile Tmax 37.2. Objective - Review of Systems Generalized/Overall Review: Reports: Weakness EENTM: Reports: No Symptoms Reported Respiratory: Denies: Cough, Shortness of Breath Cardiac: Denies: Chest Pain, Palpitations Abdominal: Denies: Nausea, Vomiting Genitourinary Symptoms: Denies: Urgency, Frequency Musculoskeletal Complaints: Reports: Joint Pain - Vitals Vitals: Last Vital Signs Temp 36.6 C 03/26/17 11:19 Pulse 110 H 03/26/17 11:19 Resp 18 03/26/17 11:19 BP 140/59 03/26/17 11:19 Pulse Ox 97 03/26/17 11:19 - Abnormal Lab Findings Abnormal Lab Findings: Abnormal Lab Results 03/25/17 03/25/17 03/26/17 Range/Units 07:25 17:10 05:45 WBC 16.0 H D (4.0-10.5) K/mm3 RBC 2.71 L (4.2-5.4) M/mm3 Hgb 10.8 L 8.6 L (12.5-16.0) gm/dL Hct 31.6 L 24.7 L (37.0-47.0) % MCH 31.7 H (27-31) pg RDW 15.7 H (11.5-14.0) % MPV 10.3 H (6.0-9.5) fl PT (9.4-11.4) Seconds INR (Anticoag Therapy) (0.90-1.10) INR Chloride (97-106) mmol/L Carbon Dioxide (24-32.6) mmol/L Random Glucose (70-110) mg/dL Crossmatch See Detail 03/26/17 03/26/17 Range/Units 05:45 05:45 WBC (4.0-10.5) K/mm3 RBC (4.2-5.4) M/mm3 Hgb (12.5-16.0) gm/dL Hct (37.0-47.0) % MCH (27-31) pg RDW (11.5-14.0) % MPV (6.0-9.5) fl PT 36.0 H (9.4-11.4) Seconds INR (Anticoag Therapy) 3.46 H (0.90-1.10) INR Chloride 107 H (97-106) mmol/L Carbon Dioxide 23.5 L (24-32.6) mmol/L Random Glucose 157 H (70-110) mg/dL Crossmatch - Exam Constitutional: Present: Alert - AAO x 2., Cooperative, Elderly ENT Exam: Present: hearing grossly normal Neck: Present: supple Respiratory: Present: decreased breath sounds, No rales, No wheezing Cardiovascular/Chest: Present: regular rate, rhythm, no gallop, no JVD Abdomen: Present: Normal bowel sounds, soft, nontender, nondistended Extremity: Present: no calf tenderness, pedal edema Cauti Physician Documentation - Urinary Catheter Management Urethral (Armendariz) Date of Insertion: 03/23/17 Time of Insertion: 11:35 Date of Removal: 03/25/17 Time of Removal: 07:10 Assessment/Plan - Problems/Diagnosis (1) Hip fracture Problem: Acute Qualifiers: Encounter type: initial encounter Fracture type: closed Laterality: left Qualified Code(s): S72.002A - Fracture of unspecified part of neck of left femur, initial encounter for closed fracture Narrative: POD # 2. continue with PT/OT. (2) Acute blood loss anemia Problem: Acute Narrative: s/p BT. Hb 8.6. will monitor. (3) Dementia Problem: Chronic Qualifiers: Dementia type: Alzheimer's disease (4) Hyperlipidemia Problem: Chronic (5) Depression Problem: Acute
[2017-03-26] MEDS: SENNOSIDES/DOCUSATE SODIUM 1 TAB TABLET PO SCH (20:20)
[2017-03-27 06:20] LABS: Prothrombin Time (Patient) 70.9 Seconds (9.4-11.4)
[2017-03-27 06:41] LABS: INR 6.82 INR (0.90-1.10)
[2017-03-27] MEDS: HYDROcodone/ACETAMINOPHEN 1 EACH TABLET PO PRN ×2 (07:06→12:54)
[2017-03-27 07:26] LABS: Mean Cell Volume 92.6 fl (78-100); Mean Corpuscular Hemoglobin 31.9 pg (27-31); Mean Corpuscular Hgb Conc 34.5 g/dl (32-36); Mean Platelet Volume 10.5 fl (6.0-9.5); Neutrophil # 9.9 K/mm3 (1.3-6.0); Neutrophil % 77.5 % (42-75.0); Platelet Count 266 K/mm3 (150-450); Red Blood Count 1.88 M/mm3 (4.2-5.4); Red Cell Distribution Width 15.6 % (11.5-14.0); White Blood Count 12.8 K/mm3 (4.0-10.5)
[2017-03-27 07:30] LABS: BUN/Creatinine Ratio 20.5 (9.0-21.6); Hematocrit 17.4 % (37.0-47.0)
[2017-03-27 07:31] LABS: Anion Gap 10.9 mmol/L (6.8-13.8); Calcium * 8.2 mg/dL (7.9-10.9); Carbon Dioxide 26.8 mmol/L (24-32.6); Estimated Creat Clear 48.8; Potassium 3.7 mmol/L (3.4-4.6); Total Cells Counted 100
--- NOTE | 2017-03-27 07:40 | PN ---
Progess Note - Interim Narrative: 03/27/17 07:38 Lab called to report her Hb is 6. Will give her Vit K and 2 units of PRBC. Had one dose of Coumadin postop and INR went up to 3.4. INR is 6.8 today.. Coumadin on hold since yesterday.. 03/27/17 07:40
[2017-03-27] MEDS ORDERED: FUROSEMIDE 10 MG/ML VIAL IV PRN (07:42)
[2017-03-27 07:46] LABS: Atypical (Reactive) Lymph 2 % (0-2); Lymphocyte 8 % (20-51); Monocyte 3 % (0-9); Neutrophil 87 % (42-75); Neutrophil # 11.1 K/mm3 (1.3-6.0)
[2017-03-27] MEDS ORDERED: PHYTONADIONE (VIT K1) 5 MG TABLET PO ONE (07:46)
[2017-03-27 07:47] LABS: Hypochromia 3+; Macrocytosis 2+; Platelet Estimate Normal (NORMAL); Target Cells 3+
--- NOTE | 2017-03-27 08:36 | PN ---
Subjective - Date and Time Seen Date: 03/27/17 Time: 08:22 Subjective Narrative: Patient seen and examined at bedside. No acute issues overnight. Patient states she feels just fine this AM and denies any new issues or concerns. Pain adequately controlled. Objective - Review of Systems Generalized/Overall Review: Reports: Weakness, Fatigue EENTM: Reports: No Symptoms Reported Respiratory: Reports: No Symptoms Reported Cardiac: Reports: No Symptoms Reported Abdominal: Reports: No Symptoms Reported Genitourinary Symptoms: Reports: No Symptoms Reported Musculoskeletal Complaints: Reports: Joint Pain Neurological: Reports: No Symptoms Reported Skin: Reports: No Symptoms Reported Endocrine: Reports: No Symptoms Reported Misc: All systems neg except as marked - Vitals Vitals: Last Vital Signs Temp 36.5 C 03/27/17 06:51 Pulse 101 H 03/27/17 06:51 Resp 18 03/27/17 06:51 BP 156/54 03/27/17 06:51 Pulse Ox 94 03/27/17 06:51 - Abnormal Lab Findings Abnormal Lab Findings: Abnormal Lab Results 03/25/17 03/27/17 03/27/17 Range/Units 07:25 05:50 05:50 WBC 12.8 H (4.0-10.5) K/mm3 RBC 1.88 L (4.2-5.4) M/mm3 Hgb 6.0 L* D (12.5-16.0) gm/dL Hct 17.4 L* D (37.0-47.0) % MCH 31.9 H (27-31) pg RDW 15.6 H (11.5-14.0) % MPV 10.5 H (6.0-9.5) fl Immature Gran % (Auto) 0.80 H (0.001-0.429) % Immature Gran # (Auto) 0.10 H (0.000-0.0310) K/mm3 Neutrophils % 77.5 H (42-75.0) % Neutrophils % (Manual) 87 H (42-75) % Lymphocytes % 8.4 L (20-51) % Lymphocytes % (Manual) 8 L (20-51) % Monocytes % 13.0 H (0.0-9) % Neutrophils # 9.9 H (1.3-6.0) K/mm3 Neutrophils # (Manual) 11.1 H (1.3-6.0) K/mm3 Lymphocytes # 1.1 L (1.5-3.5) k/mm3 Lymphocytes # (Manual) 1.0 L (1.5-3.5) k/mm3 Monocytes # 1.7 H (0.0-1.0) k/mm3 PT 70.9 H (9.4-11.4) Seconds INR (Anticoag Therapy) 6.82 H* (0.90-1.10) INR Chloride (97-106) mmol/L Random Glucose (70-110) mg/dL Crossmatch See Detail 03/27/17 Range/Units 05:50 WBC (4.0-10.5) K/mm3 RBC (4.2-5.4) M/mm3 Hgb (12.5-16.0) gm/dL Hct (37.0-47.0) % MCH (27-31) pg RDW (11.5-14.0) % MPV (6.0-9.5) fl Immature Gran % (Auto) (0.001-0.429) % Immature Gran # (Auto) (0.000-0.0310) K/mm3 Neutrophils % (42-75.0) % Neutrophils % (Manual) (42-75) % Lymphocytes % (20-51) % Lymphocytes % (Manual) (20-51) % Monocytes % (0.0-9) % Neutrophils # (1.3-6.0) K/mm3 Neutrophils # (Manual) (1.3-6.0) K/mm3 Lymphocytes # (1.5-3.5) k/mm3 Lymphocytes # (Manual) (1.5-3.5) k/mm3 Monocytes # (0.0-1.0) k/mm3 PT (9.4-11.4) Seconds INR (Anticoag Therapy) (0.90-1.10) INR Chloride 108 H (97-106) mmol/L Random Glucose 125 H (70-110) mg/dL Crossmatch - Exam Constitutional: Present: Alert, Cooperative, No distress, Elderly ENT Exam: Present: moist mucous membranes Respiratory: Present: lungs clear, normal breath sounds, no respiratory distress , no accessory muscle use Cardiovascular/Chest: Present: regular rate, rhythm, edema - trace Abdomen: Present: soft, nontender, nondistended Extremity: Present: lower extremity edema - trace, other - s/p closed reduction of left intertrochanteric femur fracture with dressing in place Skin Exam: Present: pallor - both skin and conjunctival pallor Neurologic: Present: alert, disoriented x 3, other - Baseline dementia Appearance: Present: impaired insight, impaired recent memory, impaired remote memory Cauti Physician Documentation - Urinary Catheter Management Urethral (Armendariz) Date of Insertion: 03/23/17 Time of Insertion: 11:35 Date of Removal: 03/25/17 Time of Removal: 07:10 Assessment/Plan Plan Narrative: IMPRESSION & PLAN: Left Intertrochanteric Femur Fracture -S/P Closed reduction, cephalo-medullary fixation left intertrochanteric femur fracture by Dr. Jones on 03/24/2017 -Continue postop cares per orthopedic -Incentive spirometry encouraged Acute Blood Loss Anemia on Chronic Normocytic Anemia -Hemoglobin was 8.6 back on 11/16/2016. Anemia workup initiated and revealed an elevated vitamin B12 level at greater than 2000, normal TSH, normal iron studies and a low folate level at 3.2. The patient was started on folic acid. Follow-up CBC approximately 3 months later revealed a normal hemoglobin level of 13.1. -Acute blood loss secondary to recent surgery in combination with elevated INR. No signs of active bleeding. -Transfuse 2 units of packed red blood cells. Recheck H&H approximately 1 hour after both units have been transfused. Supratherapeutic INR -Patient started on Coumadin postoperatively for VTE prophylaxis -Despite only receiving 2 doses of Coumadin postoperatively on both 2016 and 03/25/2017, the patients INR continued to rise and is 6.82 this AM. Coumadin currently on hold. Patient given vitamin K this morning by Dr. South. -Given the patients age and comorbidities, specifically her profound dementia, she is at high risk for falls and bleeding. Patients risks may outweigh the benefits of Coumadin and one could consider alternative therapy such as BID dosing of aspirin for the next 30 days in combination with compression stockings. However, well defer to order to make the final decision. CHRONIC STABLE MEDICAL CONDITIONS: Vitamin D deficiency: Vitamin D level WNL at 47 when last checked on 2016. Continue home calcium and vitamin D supplementation. Vitamin B12 deficiency: Patient previously on vitamin B12 supplementation; however, her most recent vitamin B12 level was greater than 2000 so she was no longer on vitamin B12 supplementation. However, it appears this has been restarted on admission. Folate deficiency: Continue home folic acid 1 mg daily. Plan to recheck a folate Hyperlipidemia: Diet controlled. Depression: Continue home citalopram. Dementia, likely Alzheimers: Clinically stable and at baseline. Continue home donepezil. Insomnia: Continue home melatonin as needed. VTE Prophylaxis: Currently on coumadin, see comments above. GI Prophylaxis: Increased risk of PUD. Start omeprazole 40mg PO daily. Disposition: Transfuse 2 Units PRBCs today. Monitor H&H. Likely discharge to SNF at [facility] tomorrow (03/28/2017). - Problems/Diagnosis (1) Supratherapeutic INR Problem: Acute (2) Acute blood loss anemia Problem: Acute (3) Intertrochanteric fracture of left femur Problem: Acute Qualifiers: Encounter type: subsequent encounter Fracture type: closed Fracture alignment: displaced Fracture healing: with routine healing Qualified Code(s ): S72.142D - Displaced intertrochanteric fracture of left femur, subsequent encounter for closed fracture with routine healing (4) Dementia Problem: Chronic Qualifiers: Dementia type: Alzheimer's disease (5) Folate deficiency Problem: Chronic (6) Vitamin B12 deficiency Problem: Chronic (7) Vitamin D deficiency Problem: Chronic (8) Insomnia Problem: Chronic (9) Normocytic anemia Problem: Chronic (10) Depression Problem: Chronic (11) Hyperlipidemia Problem: Chronic
[2017-03-27] MEDS: DONEPEZIL HCL 10 MG TABLET PO SCH (08:53)
[2017-03-27] MEDS: FOLIC ACID 1 MG TABLET PO SCH (08:53)
[2017-03-27] MEDS: CYANOCOBALAMIN 1,000 MCG TABLET PO SCH (08:53)
[2017-03-27] MEDS: CITALOPRAM HYDROBROMIDE 20 MG TABLET PO SCH (08:53)
[2017-03-27] MEDS: PANTOPRAZOLE SODIUM 40 MG TABLET.EC PO SCH (09:16)
[2017-03-27 19:23] LABS: Hematocrit 27.3 % (37.0-47.0); Hemoglobin 9.4 gm/dL (12.5-16.0)
[2017-03-27] MEDS: SENNOSIDES/DOCUSATE SODIUM 1 TAB TABLET PO SCH (20:08)
[2017-03-28] MEDS: HYDROcodone/ACETAMINOPHEN 1 EACH TABLET PO PRN ×2 (00:23→05:19)
[2017-03-28 05:58] LABS: Hematocrit 25.2 % (37.0-47.0); Hemoglobin 8.7 gm/dL (12.5-16.0); Mean Corpuscular Hemoglobin 31.4 pg (27-31); Mean Corpuscular Hgb Conc 34.5 g/dl (32-36); Mean Platelet Volume 9.8 fl (6.0-9.5); Platelet Count 285 K/mm3 (150-450); Red Blood Count 2.77 M/mm3 (4.2-5.4); Red Cell Distribution Width 15.5 % (11.5-14.0); White Blood Count 10.4 K/mm3 (4.0-10.5)
[2017-03-28 06:06] LABS: Prothrombin Time (Patient) 12.3 Seconds (9.4-11.4)
[2017-03-28 06:30] LABS: INR 1.18 INR (0.90-1.10)
[2017-03-28] MEDS: PANTOPRAZOLE SODIUM 40 MG TABLET.EC PO SCH (06:35)
[2017-03-28] MEDS ORDERED: FLU VACC QS2017-18(6MOS UP)/PF 60 MCG/0.5 ML SYRINGE IM ONE (06:40)
[2017-03-28 06:58] VITALS: BP 138/55
--- NOTE | 2017-03-28 08:02 | PN ---
Subjective - Date and Time Seen Date: 03/28/17 Time: 08:01 Subjective Narrative: S: alert, in chair, confused but follows commands. Reports less hip pain with activity PE - left leg: thigh soft, wounds without drainage, moving toes/ankle, mild pain with leg ROM P: She is status post left hip cephalo-medullary fixation postoperative day 4. Weightbearing as tolerated and range of motion as tolerated. Keep her wounds clean and dry and covered. She will need 6 weeks of DVT prophylaxis -due to her sensitivity to Coumadin she is okay for aspirin twice a day. I'll see her back in 2 weeks post discharge. Utilize RICHARD hose on her operative leg and change dressings every 2-3 days dry gauze and tape. Objective - Vitals Vitals: Last Vital Signs Temp 36.5 C 03/28/17 06:57 Pulse 81 03/28/17 06:57 Resp 18 03/28/17 06:57 BP 138/55 03/28/17 06:57 Pulse Ox 92 03/28/17 06:57 - Abnormal Lab Findings Abnormal Lab Findings: Abnormal Lab Results 03/25/17 03/27/17 03/28/17 Range/Units 07:25 19:20 05:35 RBC 2.77 L (4.2-5.4) M/mm3 Hgb 9.4 L 8.7 L (12.5-16.0) gm/dL Hct 27.3 L 25.2 L (37.0-47.0) % MCH 31.4 H (27-31) pg RDW 15.5 H (11.5-14.0) % MPV 9.8 H (6.0-9.5) fl PT (9.4-11.4) Seconds INR (Anticoag Therapy) (0.90-1.10) INR Crossmatch See Detail 03/28/17 Range/Units 05:35 RBC (4.2-5.4) M/mm3 Hgb (12.5-16.0) gm/dL Hct (37.0-47.0) % MCH (27-31) pg RDW (11.5-14.0) % MPV (6.0-9.5) fl PT 12.3 H (9.4-11.4) Seconds INR (Anticoag Therapy) 1.18 H (0.90-1.10) INR Crossmatch Cauti Physician Documentation - Urinary Catheter Management Urethral (Armendariz) Date of Insertion: 03/23/17 Time of Insertion: 11:35 Date of Removal: 03/25/17 Time of Removal: 07:10 Assessment/Plan - Problems/Diagnosis (1) Intertrochanteric fracture of left femur Problem: Acute Qualifiers: Encounter type: subsequent encounter Fracture type: closed Fracture alignment: displaced Fracture healing: with routine healing Qualified Code(s ): S72.142D - Displaced intertrochanteric fracture of left femur, subsequent encounter for closed fracture with routine healing
--- NOTE | 2017-03-28 08:25 | DS ---
(1) Supratherapeutic INR Problem: Resolved (2) Acute blood loss anemia Problem: Acute (3) Intertrochanteric fracture of left femur Problem: Acute Qualifiers: Encounter type: subsequent encounter Fracture type: closed Fracture alignment: displaced Fracture healing: with routine healing Qualified Code(s ): S72.142D - Displaced intertrochanteric fracture of left femur, subsequent encounter for closed fracture with routine healing (4) Dementia Problem: Chronic Qualifiers: Dementia type: Alzheimer's disease (5) Folate deficiency Problem: Chronic (6) Vitamin B12 deficiency Problem: Chronic (7) Vitamin D deficiency Problem: Chronic (8) Insomnia Problem: Chronic (9) Normocytic anemia Problem: Chronic (10) Depression Problem: Chronic (11) Hyperlipidemia Problem: Chronic Description of Stay: ADMISSION DATE: 03/23/2017 DISCHARGE DATE: 03/28/[address] South: Hanna Sumner, is an 86-year-old white female, resident of the [facility], patient of Dr. Hoover, with past medical history of Alzheimer's dementia, anxiety depression, hyperlipidemia who was admitted on 03/23/2017 because of a fall and left hip pain. Earlier this morning the patient was in on her recliner when she was told that it was time to do her exercises. She stood up and as she was going to her walker, lost her balance and fell down. She immediately had left hip pain and couldn't stand by herself. She was brought to our emergency room where she was found to have a left intertrochanteric fracture on x-ray. She was then admitted for further orthopedic intervention. PROBLEM BASED HOSPITAL COURSE: Left Intertrochanteric Femur Fracture -S/P Closed reduction, cephalo-medullary fixation left intertrochanteric femur fracture by Dr. Jones on 03/24/2017 -Orders per Ortho: Weightbearing as tolerated and range of motion as tolerated. Keep her wounds clean and dry and covered. She will need 6 weeks of DVT prophylaxis -due to her sensitivity to Coumadin she is okay for aspirin twice a day. I'll see her back in 2 weeks post discharge. Utilize RICHARD hose on her operative leg and change dressings every 2-3 days dry gauze and tape. Acute Blood Loss Anemia on Chronic Normocytic Anemia -Hemoglobin was 8.6 back on 11/16/2016. Anemia workup initiated and revealed an elevated vitamin B12 level at greater than 2000, normal TSH, normal iron studies and a low folate level at 3.2. The patient was started on folic acid. Follow-up CBC approximately 3 months later revealed a normal hemoglobin level of 13.1. -Acute blood loss secondary to recent surgery in combination with elevated INR. No signs of active bleeding. -Patient received a total of 4 Units of PRBCs during her admission -Recheck hemogram on Saturday04/01/2017 Supratherapeutic INR -Patient started on Coumadin postoperatively for VTE prophylaxis -Despite only receiving 2 doses of Coumadin postoperatively on both 2016 and 03/25/2017, the patients INR continued to rise and was 6.82 the AM of 03/27/2017. Patient given vitamin K by Dr. South. -Given the patients age and comorbidities, specifically her profound dementia, she is at high risk for falls and bleeding. Patients risks may outweigh the benefits of Coumadin and one could consider alternative therapy such as BID dosing of aspirin for the next at least 30 days in combination with compression stockings. This was discussed with Alannah and Dr. Jones and the decision was made for the patient to take aspirin 325mg PO BID X 6 weeks for VTE ppx rather than coumadin due to her risk of falls and bleeding. -INR 1.18 on the AM of discharge CHRONIC STABLE MEDICAL CONDITIONS: Vitamin D deficiency: Vitamin D level WNL at 47 when last checked on 2016. Continue home calcium and vitamin D supplementation. Vitamin B12 deficiency: Patient previously on vitamin B12 supplementation; however, her most recent vitamin B12 level was greater than 2000 so she was no longer on vitamin B12 supplementation. However, it appears this has been restarted on admission. Folate deficiency: Continue home folic acid 1 mg daily. Hyperlipidemia: Diet controlled. Depression: Continue home citalopram. Dementia, likely Alzheimers: Clinically stable and at baseline. Continue home donepezil. Insomnia: Continue home melatonin as needed. VTE Prophylaxis: Bilateral compression stockings, aspirin 325mg PO BID GI Prophylaxis: Increased risk of PUD. Pantoprazole 40mg PO daily started during her admission and I would recommend continuing this medication at least while the patient is on full strength aspirin BID. Can consider discontinuing once patient goes back to her daily baby aspirin. Disposition: Patient discharged in stable condition to [facility] for PT and OT. FOLLOW-UP APPOINTMENTS: -Follow-up with PCP, Dr. Hoover, within 2-3 weeks -Follow-up with Dr. Jones in 2 weeks -Check hemogram on Saturday04/01/2017 NEW OR CHANGED MEDICATIONS: -Aspirin 325mg PO BID X 45 days and then transition back to 81mg daily -Pantoprazole 40mg PO daily -Senna-S 1-2 tabs PO TID PRN constipation -Tramadol 50mg 0.5-1 tab Q4H PRN pain DISCONTINUED MEDICATIONS: None RADIOLOGY REPORTS: Left hip and pelvis x-ray on 03/23/2017 showed: Osteopenia. Acute mildly displaced left intertrochanteric femur fracture. Chronic fracture deformity of the right superior and inferior pubic rami, similar to the prior CT dated 2016. Single view chest x-ray on 03/23/2017 showed: No acute cardiopulmonary process. Procedures Performed: see notes below List Procedures: Operative Report - Dictated Report Narrative: Date: 03/24/2017 Surgeon: Diego Jones M.D. Violin Mechanic: Ashish Wang PA-C Preoperative diagnosis: Left Intertrochanteric femur fracture Postoperative diagnosis: Left Intertrochanteric femur fracture Operations and procedures: 1. Closed reduction, cephalo-medullary fixation left intertrochanteric femur fracture 2. Intraoperative interpretation of radiographs Anesthesia: Spinal Specimens: None Estimated blood loss: 50 Milliliters Retained implants: [employer] Trigen InterTAN 130 degree size 10 mm by 18 centimeter nail with 105 millimeter lag screw and 100 millimeter compression screw, with distal locking screw Complications: None Indications for procedure: Mrs. Sumner is a 86-year-old female who injured the left leg after ground- level fall. They were admitted to the hospital after being evaluated in the emergency department. Once the medical provider felt that they were stable for surgical treatment, the risks and benefits alternatives were discussed. The risks of , blood clots, bleeding, infection, nerve/tendon/blood vessel injury, malunion, nonunion, failure of implants, painful implants, arthrosis, and need for additional procedures were discussed. The extremity was marked and consent was obtained on the floor. Procedure: After marking the operative extremity on the floor, the patient was taken to the operating room. A timeout was performed. IV antibiotics consisting of Ancef were administered. A spinal anesthetic was induced by anesthesia, and the patient was then placed onto a fracture table with a well-padded perineal post. The nonoperative leg was placed in a well-padded traction boot in slight extension without any traction with an SCD on the leg. The operative leg was placed in a well-padded traction boot. Longitudinal traction, internal rotation , and flexion were utilized in order to reduce the fracture. Preliminary images were attained utilizing C-arm in both the AP and lateral views. This confirmed that we had obtained adequate visualization of the fracture as well as reduction. Next the hip was then prepped and draped in a standard sterile fashion. Next the guidewire was placed percutaneously proximal to the greater trochanter to diallo a starting point at the tip of the greater trochanter centered on the lateral view. This was passed down to the level below the lesser trochanter. A scalpel was utilized in order to dissect down to the greater trochanter in order to place the soft tissue protector down to bone. The entry drill was then placed down the proximal femur to the level of the lesser trochanter. The proper size nail was then selected and impacted into place. The outrigger was utilized in order to confirm the appropriate depth of the nail. Using the alignment device on the outrigger, a chanel incision was made over the lateral femur. Sharp dissection was carried through the iliotibial band down to the proximal femur. The guidewire was was placed into the femoral head in a center-center position on AP and lateral views. The tip-apex distance of less than 25 mm combined was obtained. Once we felt that we had placed a guidewire in the appropriate position, it was measured. Next the compression screw site was drilled through the lateral femoral cortex. This was then drilled down to the appropriate depth, again confirming that we are within the confines the bone. The derotational bar was then placed and the lag screw was drilled. The lag screw was then secured in place seating fully ensuring that we were within the confines of the bone. The compression screw was then inserted allowing for compression while releasing the traction on the leg. Using C-arm this was visualized to allow for compression across the fracture site. Once is felt that we had adequately stabilized the intertrochanteric fracture, the distal interlocking screw was placed in a dynamic position. It was confirmed to be the appropriate length and within the nail on both AP and lateral views. The nail was secured allowing for controlled compression and the outrigger was removed. The wounds were then thoroughly irrigated. Final images were obtained. The hip was placed through range of motion and showed no crepitance. The deep fascia was closed with 0 Vicryl, the subcutaneous tissue with 3-0 Vicryl, and the skin was closed with david. Sterile dressings of Xeroform, 4 x 4, ABD, and tape were applied. All sponge, sharp, and instrument counts were correct prior to closing the wounds. The patient was then awoken and transferred to the postanesthesia care unit in stable condition. Results and Findings: Laboratory Tests 03/24/17 03/25/17 03/25/17 13:37 05:30 05:30 Hgb 7.4 L* D INR (Anticoag Therapy) 0.99 1.19 H 03/25/17 03/26/17 03/26/17 17:10 05:45 05:45 Hgb 10.8 L 8.6 L INR (Anticoag Therapy) 3.46 H 03/27/17 03/27/17 03/27/17 05:50 05:50 19:20 Hgb 6.0 L* D 9.4 L INR (Anticoag Therapy) 6.82 H* 03/28/17 03/28/17 05:35 05:35 Hgb 8.7 L INR (Anticoag Therapy) 1.18 H Discharge Disposition: [facility] Disposition: [facility] Condition: Stable Discharge Activity: Activity as tolerated - Weightbearing as tolerated and range of motion as tolerated. Discharge Diet: General/regular food Intermediate Therapy: Physicial Therapy, Occupation Therapy Referrals: Glenny Hoover DO [Staff Physician] - Additional Patient Instructions (free text): -To [facility] for PT and OT at discharge. -Follow-up with PCP, Dr. Hoover on 04/19/17 at 9:30am -Follow-up with Dr. Jones on 04/04/17 at 3:00pm -Check hemogram on Saturday04/01/2017 -Orders per Ortho:Weightbearing as tolerated and range of motion as tolerated. Keep her wounds clean and dry and covered. She will need 6 weeks of DVT prophylaxis -due to her sensitivity to Coumadin she is okay for aspirin twice a day. I'll see her back in 2 weeks post discharge. Utilize RICHARD hose on her operative leg and change dressings every 2-3 days dry gauze and tape. Prescriptions (Any new or edited meds): Acetaminophen [Tylenol] 650 mg PO Q4H PRN #30 tablet PRN Reason: Pain Aspirin [Aspirin Enteric Coated] 325 mg PO BID 45 Days #90 tablet. Pantoprazole Sodium [Protonix] 40 mg PO DAILY #30 tablet. Senkvng/Docusate Sodium [Senokot-S] 1 - 2 tab PO TID PRN #90 tablet PRN Reason: Constipation traMADol HCL [Tramadol HCl] 0.5 - 1 tab PO Q4H PRN #50 tablet PRN Reason: Pain Complete Home Medications List: Complete Home Medication List: Ascorbic Acid [Vitamin C] 500 mg PO DAILY 03/23/17 Aspirin [Aspirin Chewable] 81 mg PO DAILY 03/23/17 Calcium Carbonate/Vitamin D3 [Calcium 600 + Vit D 400 Softgl] 1 each PO DAILY Cholecalciferol (Vitamin D3) [Vitamin D3] 1,000 unit PO DAILY 03/23/17 Citalopram Hydrobromide [Citalopram HBr] 20 mg PO DAILY 03/23/17 Cyanocobalamin [Vitamin B-12] 1,000 mcg PO DAILY 03/23/17 Donepezil HCl [Aricept] 5 mg PO HS 03/23/17 Erythromycin Ethylsuccinate [E.e.s. 400] 400 mg PO DAILY 03/23/17 Ferrous Sulfate [Iron] 325 mg PO DAILY 03/23/17 Folic Acid 1 mg PO DAILY 03/23/17 Melatonin 1 mg PO HS PRN 03/23/17 [place]-3 Fatty Acids/Fish Oil [Fish Oil 1,000 mg Capsule] 1,000 mg PO DAILY 03/23 Acetaminophen [Tylenol] 650 mg PO Q4H PRN #30 tablet 03/28/17 Aspirin [Aspirin Enteric Coated] 325 mg PO BID 45 Days #90 tablet. 03/28/17 Pantoprazole Sodium [Protonix] 40 mg PO DAILY #30 tablet. 03/28/17 Sennosides/Docusate Sodium [Senokot-S] 1 - 2 tab PO TID PRN #90 tablet 03/28/17 traMADol HCL [Tramadol HCl] 0.5 - 1 tab PO Q4H PRN #50 tablet 10/05/17 Amb Orders for Discharge: Hemogram Time Frame: 04/01/17, Location: Determined By Patient
[2017-03-28] MEDS: DONEPEZIL HCL 10 MG TABLET PO SCH (08:53)
[2017-03-28] MEDS: CYANOCOBALAMIN 1,000 MCG TABLET PO SCH (08:54)
[2017-03-28] MEDS: CITALOPRAM HYDROBROMIDE 20 MG TABLET PO SCH (08:54)
[2017-03-28] MEDS: FOLIC ACID 1 MG TABLET PO SCH (08:54)
[2017-03-28] MEDS ORDERED: ASPIRIN 325 MG TABLET.DR PO SCH (09:00)
[2017-03-28] MEDS ORDERED: WARFARIN SODIUM 1 TAB TAB PO SCH (17:00)
== END 2017-03-28 10:40 | DRG 481 ==
LOC: ER 10:22 → MS 11:17
PROVIDERS: ADMIT Internal Medicine; ATTEND Internal Medicine
PROC: 0T9B70Z Drainage of Bladder with Drainage Device, Via Natural or Artificial Opening (ICD-10-PCS; principal; 2017-03-23)
PROC: 0QH736Z Insertion of Intramedullary Internal Fixation Device into Left Upper Femur, Percutaneous Approach (ICD-10-PCS; 2017-03-24)
PROC: 30263N1 (ICD-10-PCS; 2017-03-25)
DX: S72.142A Displaced intertrochanteric fracture of left femur, initial encounter for closed fracture (principal); D62 Acute posthemorrhagic anemia; W01.0XXA Fall on same level from slipping, tripping and stumbling without subsequent striking against object, initial encounter; Z91.81 History of falling; Y92.129 Unspecified place in nursing home as the place of occurrence of the external cause; E78.5 Hyperlipidemia, unspecified; J44.9 Chronic obstructive pulmonary disease, unspecified; G30.9 Alzheimer's disease, unspecified; F02.80 Dementia in other diseases classified elsewhere, unspecified severity, without behavioral disturbance, psychotic disturbance, mood disturbance, and anxiety; E53.8 Deficiency of other specified B group vitamins; F17.210 Nicotine dependence, cigarettes, uncomplicated; Z79.82 Long term (current) use of aspirin; Z23 Encounter for immunization
CPT/HCPCS: 27245; 36415; 51702; 71010; 73502; 76000; 80048; 80053; 81001; 85007; 85014; 85018; 85025; 85027; 85610; 86850; 86900; 87081; 90686; 93005; 96374; 97110; 97116; 97162; 97165; 97530; 97535; 99283; G0008; P9016

== ENCOUNTER 2017-05-08 22:08 | Emergency (ER) | payer MEDICARE, OTHER ==
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
[2017-05-08 22:46] LABS: Hematocrit 36.3 % (37.0-47.0); Hemoglobin 11.9 gm/dL (12.5-16.0); Mean Cell Volume 101.7 fl (78-100); Mean Corpuscular Hemoglobin 33.3 pg (27-31); Mean Corpuscular Hgb Conc 32.8 g/dl (32-36); Mean Platelet Volume 9.3 fl (6.0-9.5); Neutrophil # 6.7 K/mm3 (1.3-6.0); Neutrophil % 73.8 % (42-75.0); Platelet Count 280 K/mm3 (150-450); Red Blood Count 3.57 M/mm3 (4.2-5.4)
[2017-05-08 23:01] LABS: Urine Bilirubin Negative (NEGATIVE); Urine Blood Negative /ul (NEGATIVE); Urine Ketone Negative (NEGATIVE); Urine Nitrite Negative (NEGATIVE); Urine Protein Negative (NEGATIVE); Urine Urobilinogen Normal (NORMAL)
[2017-05-08 23:09] LABS: Urine Amorphous Sediment Many - 3+ (NONE-FEW); Urine Appearance Clear; Urine Bacteria 1+; Urine Color Yellow; Urine RBC None Seen /hpf (0-5); Urine WBC 0-5 /hpf (0-5)
[2017-05-08 23:16] LABS: Anion Gap 11.9 mmol/L (6.8-13.8); BUN/Creatinine Ratio 8.7 (9.0-21.6); Bilirubin, Total 0.4 mg/dL (0.0-1.1); Ca. Corrected For Albumin 9.6 mg/dL (8.4-10.2); Calcium * 9.1 mg/dL (7.9-10.9); Carbon Dioxide 29.1 mmol/L (24-32.6); Total Protein 6.1 gm/dL (6.2-8.2)
[2017-05-09 02:28] VITALS: BP 150/81
== END 2017-05-09 01:30 | disposition home or self-care (01) ==
LOC: ER 22:08
PROC: 0T9B7ZZ Drainage of Bladder, Via Natural or Artificial Opening (ICD-10-PCS; principal; 2017-05-08)
DX: S01.81XA Laceration without foreign body of other part of head, initial encounter (principal); S20.211A Contusion of right front wall of thorax, initial encounter; G30.9 Alzheimer's disease, unspecified; F02.80 Dementia in other diseases classified elsewhere, unspecified severity, without behavioral disturbance, psychotic disturbance, mood disturbance, and anxiety; F32.9 Major depressive disorder, single episode, unspecified; W19.XXXA Unspecified fall, initial encounter; Y92.129 Unspecified place in nursing home as the place of occurrence of the external cause; R41.82 Altered mental status, unspecified

== ENCOUNTER 2017-07-03 06:51 | Emergency (ER) | payer MEDICARE, MEDICAID ==
--- NOTE | 2017-07-03 07:01 | ERNOTE ---
Medical Problem HPI - General Chief Complaint: Altered Mental Status Time Seen by Provider: 07/03/17 06:52 Source: EMS Exam Limitations: dementia - Immun/Allergies/Home Medications Immunizations: IMMUNIZATION HX Immunizations Up to Date Yes History of Influenza Vaccine More Information Required Hx Pneumococcal Vaccination More Information Required Allergies/Adverse Reactions: Allergies codeine Allergy (Mild, Verified 07/03/17 07:49) Nausea Penicillins Allergy (Mild, Verified 07/03/17 07:49) Hives Sulfa (Sulfonamide Antibiotics) Allergy (Mild, Verified 07/03/17 07:49) Nausea Home Medications: HOME MEDICATIONS Ascorbic Acid [Vitamin C] 500 mg PO DAILY 03/23/17 [Last Taken Unknown] Calcium Carbonate/Vitamin D3 [Calcium 600 + Vit D 400 Softgl] 1 each PO DAILY [Last Taken Unknown] Cholecalciferol (Vitamin D3) [Vitamin D3] 1,000 unit PO DAILY 03/23/17 [Last Taken Unknown] Citalopram Hydrobromide [Citalopram HBr] 20 mg PO DAILY 03/23/17 [Last Taken Unknown] Cyanocobalamin [Vitamin B-12] 1,000 mcg PO DAILY 03/23/17 [Last Taken Unknown] Donepezil HCl [Aricept] 5 mg PO HS 03/23/17 [Last Taken Unknown] Ferrous Sulfate [Iron] 325 mg PO DAILY 03/23/17 [Last Taken Unknown] Folic Acid 1 mg PO DAILY 03/23/17 [Last Taken Unknown] Melatonin 1 mg PO HS PRN 03/23/17 [Last Taken Unknown] [place]-3 Fatty Acids/Fish Oil [Fish Oil 1,000 mg Capsule] 1,000 mg PO DAILY 03/23 [Last Taken Unknown] Pantoprazole Sodium [Protonix] 40 mg PO DAILY #30 tablet. 03/28/17 [Last Taken Unknown] Acetaminophen 1 - 2 tab PO Q6H PRN 05/08/17 [Last Taken Unknown] Aspirin [Aspirin Enteric Coated] 325 mg PO DAILY 05/08/17 [Last Taken Unknown] LORazepam [Ativan] 1 mg PO TID 05/08/17 [Last Taken Unknown] traMADol HCL [Tramadol HCl] 50 mg PO Q4H PRN 05/08/17 [Last Taken Unknown] Cefdinir 300 mg PO BID #6 capsule 01/10/18 [Last Taken Unknown] - History of Present History Narrative: NH staff state that she has become more confused than normal throughout the night. This am she complained of dysuria Timing: getting worse Severity: moderate Review of Systems - Review of Systems Constitutional: Absent: recent illness Respiratory: Absent: shortness of breath Cardiology: Absent: chest pain Genitourinary: Present: dysuria - Patient's Past Medical History Patient History - Medical: No pertinent hx, Alzheimer's Disease, Dementia, Depression Patient History - Cardiac/Respiratory: COPD, Hyperlipidemia Patient History - Cancer: No Hx of Cancer Patient History - Surgical Procedures: Appendectomy, Cholecystectomy, Colonoscopy Patient History - Other: None - Family History Mother Family History - Medical: History Unknown Family History - Cardiac/Respiratory: History Unknown Family History - Cancer: History Unknown Father Family History - Medical: History Unknown Family History - Cardiac/Respiratory: History Unknown Family History - Cancer: History Unknown Sister Family History - Medical: History Unknown Family History - Cardiac/Respiratory: History Unknown Family History - Cancer: History Unknown - Social History Abuse History: No History of abuse Psych History: Hx of Depression - Immunizations Immunizations Up to Date: Yes Hx Pneumococcal Vaccination: More Information Required to Determine History of Influenza Vaccine: More Information Required to Determine Physical Exam - Physical Exam General Appearance: Present: wd/wn, alert, no apparent distress Head Exam: Present: normal inspection, no evidence of injury Neck: Present: normal inspection, nontender, supple Respiratory: Present: no respiratory distress, normal breath sounds, no accessory muscle use, lungs clear Cardiovascular/Chest: Present: regular rate, rhythm, no murmur, normal peripheral pulses Gastrointestinal/Abdominal: Present: normal bowel sounds, nondistended, soft, tenderness - suprapubic Extremity Exam: Present: normal inspection, normal range of motion, no edema Neurological Exam: Present: alert, normal mood/affect, disoriented to time, disoriented to place Skin Exam: Present: normal color, warm/dry Lymphatic Exam: Present: no adenopathy ED Progress - Results and Orders Patient's Lab Results:: I have reviewed the patient's lab results. Results and Orders: Laboratory Tests 07/03/17 07:18 WBC 6.6 Hgb 12.4 L Hct 37.6 Plt Count 309 Lymphocytes % 14.0 L Laboratory Tests 07/03/17 07/03/17 07/03/17 07:18 07:18 07:38 WBC 6.6 Hgb 12.4 L Hct 37.6 Plt Count 309 Sodium 142 Potassium 3.7 Chloride 104 Carbon Dioxide 30.0 Anion Gap 11.7 BUN 8 Creatinine 0.98 Random Glucose 152 H Calcium 9.2 Total Bilirubin 0.3 AST 13 ALT 16 L Alkaline Phosphatase 129 Total Protein 6.6 Albumin 3.0 L Urine Color Yellow Urine Appearance Slightly cloudy Urine pH 6.0 Ur Specific [place] 1.010 Urine Protein Negative Urine Glucose (UA) Negative Urine Ketones Negative Urine Blood Negative Urine Nitrate Negative Urine Bilirubin Negative Urine Urobilinogen Normal Ur Leukocyte Esterase 75 H Urine RBC None seen Urine WBC 0-5 Ur Epithelial Cells Trace Urine Bacteria 2+ H Urine Culture Comments Culture to follow - Vital Signs Patient's Vital Signs:: I have reviewed the patient's vital signs. Departure Clinical Impression: UTI (urinary tract infection) Qualifiers: Urinary tract infection type: acute cystitis Hematuria presence: without hematuria Qualified Code(s): N30.00 - Acute cystitis without hematuria - Departure Disposition: Other home health Condition: Good Instructions: Urinary Tract Infection, Adult, [id number] Prescriptions: Cefdinir 300 mg PO BID #6 capsule
[2017-07-03 07:20] LABS: Hematocrit 37.6 % (37.0-47.0); Hemoglobin 12.4 gm/dL (12.5-16.0); Mean Cell Volume 97.4 fl (78-100); Mean Corpuscular Hemoglobin 32.1 pg (27-31); Mean Platelet Volume 9.4 fl (6.0-9.5); Neutrophil # 4.9 K/mm3 (1.3-6.0); Neutrophil % 74.3 % (42-75.0); Platelet Count 309 K/mm3 (150-450); Red Blood Count 3.86 M/mm3 (4.2-5.4); Red Cell Distribution Width 12.7 % (11.5-14.0); White Blood Count 6.6 K/mm3 (4.0-10.5)
[2017-07-03 07:33] LABS: Anion Gap 11.7 mmol/L (6.8-13.8); BUN/Creatinine Ratio 8.2 (9.0-21.6); Bilirubin, Total 0.3 mg/dL (0.0-1.1); Ca. Corrected For Albumin 9.7 mg/dL (8.4-10.2); Calcium * 9.2 mg/dL (7.9-10.9); Potassium 3.7 mmol/L (3.4-4.6); Total Protein 6.6 gm/dL (6.2-8.2)
[2017-07-03 08:08] LABS: Urine Bilirubin Negative (NEGATIVE); Urine Blood Negative /ul (NEGATIVE); Urine Ketone Negative (NEGATIVE); Urine Nitrite Negative (NEGATIVE); Urine Protein Negative (NEGATIVE); Urine Urobilinogen Normal (NORMAL)
[2017-07-03 08:24] LABS: Urine Appearance Slightly Cloudy; Urine Bacteria 2+; Urine Color Yellow; Urine RBC None Seen /hpf (0-5); Urine WBC 0-5 /hpf (0-5)
[2017-07-03 13:07] VITALS: BP 149/78
== END 2017-07-03 09:25 | disposition home health service (06) ==
LOC: ER 06:51
DX: N30.00 Acute cystitis without hematuria

== ENCOUNTER 2017-07-11 18:15 | Emergency (ER) | payer MEDICARE, MEDICAID ==
--- NOTE | 2017-07-11 18:33 | ERNOTE ---
Trauma/Assault HPI - General Stated Complaint: FALL Time Seen by Provider: 07/11/17 18:25 Source: patient, EMS Exam Limitations: dementia - Immun/Allergies/Home Medications Immunizations: IMMUNIZATION HX Immunizations Up to Date Yes History of Influenza Vaccine More Information Required Hx Pneumococcal Vaccination More Information Required Allergies/Adverse Reactions: Allergies codeine Allergy (Mild, Verified 07/11/17 18:33) Nausea Penicillins Allergy (Mild, Verified 07/11/17 18:33) Hives Sulfa (Sulfonamide Antibiotics) Allergy (Mild, Verified 07/11/17 18:33) Nausea Home Medications: HOME MEDICATIONS Ascorbic Acid [Vitamin C] 500 mg PO DAILY 03/23/17 [Last Taken Unknown] Calcium Carbonate/Vitamin D3 [Calcium 600 + Vit D 400 Softgl] 1 each PO DAILY [Last Taken Unknown] Cholecalciferol (Vitamin D3) [Vitamin D3] 1,000 unit PO DAILY 03/23/17 [Last Taken Unknown] Citalopram Hydrobromide [Citalopram HBr] 20 mg PO DAILY 03/23/17 [Last Taken Unknown] Cyanocobalamin [Vitamin B-12] 1,000 mcg PO DAILY 03/23/17 [Last Taken Unknown] Donepezil HCl [Aricept] 5 mg PO HS 03/23/17 [Last Taken Unknown] Ferrous Sulfate [Iron] 325 mg PO DAILY 03/23/17 [Last Taken Unknown] Folic Acid 1 mg PO DAILY 03/23/17 [Last Taken Unknown] Melatonin 1 mg PO HS PRN 03/23/17 [Last Taken Unknown] [place]-3 Fatty Acids/Fish Oil [Fish Oil 1,000 mg Capsule] 1,000 mg PO DAILY 03/23 [Last Taken Unknown] Pantoprazole Sodium [Protonix] 40 mg PO DAILY #30 tablet. 03/28/17 [Last Taken Unknown] Acetaminophen 1 - 2 tab PO Q6H PRN 05/08/17 [Last Taken Unknown] LORazepam [Ativan] 1 mg PO Q8H PRN 05/08/17 [Last Taken Unknown] traMADol HCL [Tramadol HCl] 50 mg PO Q4H PRN 05/08/17 [Last Taken Unknown] Aspirin 81 mg PO DAILY 07/11/17 [Last Taken Unknown] Levofloxacin [Levaquin] 500 mg PO DAILY 01/18/18 [Last Taken Unknown] - History of Present Illness Narrative: Patient is a resident in a dementia unit and somehow lost her balance and fell. Her only complaint is in the right hip area, but she does have some abrasions on her right hand. She rates the pain as mild in severity Location Occurred: Reports: other - longterm Pain Location: Reports: lower extremity - right hip Method of Injury: Reports: fall Severity: mild Loss of Consciousness: Reports: no loss of consciousness - she does not believe that she lost consciousness but appears remember the event Associated Symptoms - Trauma: Reports: denies symptoms Review of Systems - Review of Systems Constitutional: Present: See HPI EYE: Present: no symptoms reported ENT: Present: no symptoms reported Respiratory: Present: no symptoms reported Cardiology: Present: no symptoms reported Gastrointestinal/Abdominal: Present: no symptoms reported Genitourinary: Present: no symptoms reported Musculoskeletal: Present: See HPI Skin: Present: no symptoms reported Neurological: Present: no symptoms reported Endocrine: Present: no symptoms reported Hematologic/Lymphatic: Present: no symptoms reported Psych: Present: no symptoms reported - Patient's Past Medical History Patient History - Medical: Alzheimer's Disease, Dementia, Depression Patient History - Cardiac/Respiratory: COPD, Hyperlipidemia Patient History - Cancer: No Hx of Cancer Patient History - Surgical Procedures: Appendectomy, Cholecystectomy, Colonoscopy, Total Hip Replacement Patient History - Other: None - Family History Mother Family History - Medical: History Unknown Family History - Cardiac/Respiratory: History Unknown Family History - Cancer: History Unknown Father Family History - Medical: History Unknown Family History - Cardiac/Respiratory: History Unknown Family History - Cancer: History Unknown Sister Family History - Medical: History Unknown Family History - Cardiac/Respiratory: History Unknown Family History - Cancer: History Unknown - Social History Living Situations: longterm Abuse History: No History of abuse Psych History: Hx of Depression Smoking Status: Current some day smoker Alcohol Use: none Drug Use: none - Immunizations Immunizations Up to Date: Yes Hx Pneumococcal Vaccination: More Information Required to Determine History of Influenza Vaccine: More Information Required to Determine Physical Exam - Physical Exam General Appearance: Present: wd/wn, mild distress Head Exam: Present: normal inspection, no evidence of injury Eye Exam: Normal inspection: bilateral, PERRL: bilateral Ears, Nose, Throat: Present: normal ENT inspection, H, normal pharynx Neck: Present: normal inspection, nontender Respiratory: Present: no respiratory distress, normal breath sounds, no accessory muscle use, chest nontender, lungs clear Cardiovascular/Chest: Present: regular rate, rhythm, no murmur, normal peripheral pulses Gastrointestinal/Abdominal: Present: normal bowel sounds, nontender, nondistended, soft, no organomegaly Rectal Exam: Present: deferred Back Exam: Present: normal inspection, normal range of motion Extremity Exam: Present: normal inspection, non-tender, normal range of motion, no edema, other - abrasion to the posterior surface of the right hand, patient has some pain on flexion of the right hip and tenderness over the right ischial tuberosity Neurological Exam: Present: alert, oriented, normal mood/affect Skin Exam: Present: normal color, warm/dry Lymphatic Exam: Present: no adenopathy Detailed Trauma Exam Best Eye Response ([place]): (4) open spontaneously Best Verbal Response ([place]): (4) confused conversation Best Motor Response ([place]): (6) obeys commands [place] Total: 14 General Appearance: Present: mild distress Head Injury: Present: normal inspection, no tenderness on palpate Neurological Exam: Present: disoriented to time Neck Exam: Present: non-tender, full range of motion, normal alignment, normal inspection ENT Exam: Present: nml ext. inspection Chest/Respiratory Exam: Present: nml inspection, chest non-tender, breath sounds nml Cardiovascular Exam: Present: regular rate, rhythm, no murmur, normal peripheral pulses Back Exam: Present: normal inspection, no CVA tenderness, no vertebral tenderness Abdominal Exam: Present: soft, non-tender, no distention, normal bowel sounds Skin Exam: Present: other - abrasion to the right hand Exam normal except for the findings below:: Yes RL Extremity: Present: other - right hip and right ischial tuberosity tenderness LL Extremity: Present: normal inspection, normal range of motion, non-tender, no edema ED Progress - Vital Signs Patient's Vital Signs:: I have reviewed the patient's vital signs. Vital Signs: Vital Signs 07/11/17 18:20 Temperature 36.7 C Pulse Rate 95 Respiratory 20 Rate Blood Pressure 186/78 O2 Sat by Pulse 100 Oximetry - X-Ray X-Ray #1 X-Ray: hip Interpretation: Reviewed by me - Progress/Reassessment Chief Complaint: Fall Plan - Plan Plan: Patient does not appear to have suffered an acute fracture and will be sent back to the memory unit at [facility] Clinical Impression: Contusion, hip Qualifiers: Encounter type: initial encounter Laterality: right Qualified Code(s): S70.01XA - Contusion of right hip, initial encounter - Departure Disposition: Other health care facility Condition: Good Instructions: Contusion, [id number]-Thyo Critical Care Time - Critical Care Critical Time Spent:: No Total time (mins) Spent:: 0
[2017-07-11 19:08] VITALS: BP 149/71
== END 2017-07-11 19:35 | disposition short-term general hospital (02) ==
LOC: ER 18:15
DX: S70.01XA Contusion of right hip, initial encounter (principal); W18.30XA Fall on same level, unspecified, initial encounter; Y92.129 Unspecified place in nursing home as the place of occurrence of the external cause; G30.9 Alzheimer's disease, unspecified; F02.80 Dementia in other diseases classified elsewhere, unspecified severity, without behavioral disturbance, psychotic disturbance, mood disturbance, and anxiety; E78.5 Hyperlipidemia, unspecified; F17.200 Nicotine dependence, unspecified, uncomplicated; R40.2410 Glasgow coma scale score 13-15, unspecified time

== ENCOUNTER 2018-05-16 16:14 | Observation (INO) | payer MEDICAID, MEDICARE ==
[2018-05-16 16:35] LABS: Urine Bilirubin Negative (NEGATIVE); Urine Blood Negative /ul (NEGATIVE); Urine Ketone Negative (NEGATIVE); Urine Nitrite Negative (NEGATIVE); Urine Protein Negative (NEGATIVE); Urine Specific Gravity 1.015 SP.GR. (1.005-1.010); Urine Urobilinogen Normal (NORMAL)
[2018-05-16] MEDS ORDERED: NORMAL SALINE 1,000 ML IV ONE ×2 (16:52→18:54)
[2018-05-16 17:23] LABS: Urine Appearance Clear (CLEAR); Urine Bacteria 1+; Urine Color Yellow; Urine RBC 0-5 /hpf (0-5); Urine Renal Epithelial Cell TRACE /hpf; Urine WBC 0-5 /hpf (0-5)
[2018-05-16 17:27] LABS: Hematocrit 39.1 % (37.0-47.0); Hemoglobin 12.6 gm/dL (12.5-16.0); Mean Cell Volume 97.8 fl (78-100); Mean Corpuscular Hemoglobin 31.5 pg (27-31); Mean Corpuscular Hgb Conc 32.2 g/dl (32-36); Mean Platelet Volume 9.5 fl (8-12.5); Neutrophil # 5.1 K/mm3 (1.3-6.0); Neutrophil % 67.4 % (42-75.0); Platelet Count 354 K/mm3 (150-450); Red Cell Distribution Width 12.7 % (11.5-14.0); White Blood Count 7.6 K/mm3 (4.0-10.5)
[2018-05-16 17:38] LABS: CRP 0.3 mg/dL (0.0-0.9); Troponin I Less than 0.017 ng/mL (0.00-0.10)
--- NOTE | 2018-05-16 18:49 | ERNOTE ---
Neuro HPI ER Record Date of Service: 05/16/18 Presenting Symptoms: weakness, other - alterred Time Seen by Provider: 05/16/18 16:35 Source: family Exam Limitations: dementia Immunizations: IMMUNIZATION HX Immunizations Up to Date Yes History of Influenza Vaccine Yes Hx Pneumococcal Vaccination No Allergies/Adverse Reactions: Allergies Allergy/AdvReac Type Severity Reaction Status Date / Time codeine Allergy Mild Nausea Verified 05/16/18 16:19 Penicillins Allergy Mild Hives Verified 05/16/18 16:19 Sulfa (Sulfonamide Allergy Mild Nausea Verified 05/16/18 16:19 Antibiotics) Home Medications: HOME MEDICATIONS Ascorbic Acid [Vitamin C] 500 mg PO DAILY 03/23/17 [Last Taken Unknown] Cholecalciferol (Vitamin D3) [Vitamin D3] 1,000 unit PO DAILY 03/23/17 [Last Taken Unknown] Cyanocobalamin [Vitamin B-12] 1,000 mcg PO DAILY 03/23/17 [Last Taken Unknown] Folic Acid 1 mg PO DAILY 03/23/17 [Last Taken Unknown] Melatonin 1 mg PO HS PRN 03/23/17 [Last Taken Unknown] Pantoprazole Sodium [Protonix] 40 mg PO DAILY #30 tablet. 03/28/17 [Last Taken Unknown] Acetaminophen 1 - 2 tab PO Q6H PRN 05/08/17 [Last Taken Unknown] LORazepam [Ativan] 1 mg PO Q8H PRN 05/08/17 [Last Taken Unknown] HYDROcodone/ACETAMINOPHEN [[place] 5-325 mg Tablet] 1 ea PO QID PRN #20 tab 09/28/17 [Last Taken Unknown] aspirin 81 mg chewable tablet 81 mg PO DAILY 12/25/17 [Last Taken Unknown] citalopram 20 mg tablet 20 mg PO DAILY 12/25/17 [Last Taken Unknown] donepezil 5 mg tablet 5 mg PO HS 12/25/17 [Last Taken Unknown] ferrous sulfate 325 mg (65 mg iron) tablet 325 mg PO DAILY tab 12/25/17 [Last Taken Unknown] omega-3 fatty acids 1,000 mg capsule 1,000 mg PO DAILY 12/30/17 [Last Taken Unknown] - History of Present Illness Narrative: patient lives in alzheimers unit and has had urosepsis, today became more confused than normal Onset: cannot confirm onset - Character of Deficits New weakness: Present: general (diffuse) Additional Deficits: Present: weakness Baseline Cognition: Present: alert but disoriented to time Baseline Gait: Present: walks w/o assistance Associated Symptoms: Reports: altered mental status Prior Treament: Reports: similar symptoms before Review of Systems - Review of Systems Constitutional: Present: See HPI, malaise, other - alterred mental status ENT: Present: no symptoms reported Respiratory: Present: cough Cardiology: Present: no symptoms reported Gastrointestinal/Abdominal: Present: no symptoms reported Genitourinary: Present: no symptoms reported Musculoskeletal: Present: no symptoms reported Skin: Present: no symptoms reported Neurological: Present: other - alterred mental staus Endocrine: Present: no symptoms reported Hematologic/Lymphatic: Present: no symptoms reported Psych: Present: no symptoms reported All Other Systems: All systems neg except as marked Medical History (Last Reviewed 05/16/18 @ 16:19 by Marlene Murcia RN) Frequent headaches (Acute) Chronic airway obstruction (Acute) Alzheimer disease (Acute) Hip pain Pelvic fracture Postmenopausal Surgical History: Surgical History (Last Reviewed 05/16/18 @ 16:19 by Marlene Murcia RN) H/O colonoscopy Onset Date: ~2015 History of appendectomy Onset Date: ~194 History of hip surgery Onset Date: ~03/24/17 closed reduction, cephalo-medullary fixation left intertrochanteric femur fracture per Dr. Jones Hx of cholecystectomy Family History: Family History (Last Reviewed 05/16/18 @ 16:19 by Marlene Murcia RN) Father Prostate cancer Mother , unknown No problems noted. Social History: Preferred Language Cameroonian Smoking Status Never smoker Abuse History No History of abuse Psych History Hx of Depression Alcohol Use none Drug Use none (Last Updated 12/30/17 @ 15:36 by YOLANDA Tom) No Social History Section defined Physical Exam - Physical Exam General Appearance: Present: mild distress, anxious, other - more confused than Head Exam: Present: normal inspection, no evidence of injury Eye Exam: Normal inspection: bilateral, PERRL: bilateral, EOMI: bilateral Ears, Nose, Throat: Present: normal ENT inspection, normal pharynx Neck: Present: normal inspection, nontender Respiratory: Present: no respiratory distress, normal breath sounds, no accessory muscle use, chest nontender, lungs clear Cardiovascular/Chest: Present: regular rate, rhythm, no murmur, normal peripheral pulses Gastrointestinal/Abdominal: Present: normal bowel sounds, nontender, nondistended, soft, no organomegaly Back Exam: Present: normal inspection, normal range of motion, no CVA tenderness, no vertebral tenderness Extremity Exam: Present: normal inspection, non-tender, normal range of motion, no edema Neurological Exam: Present: alert, oriented, normal mood/affect, no motor/sensory deficits Skin Exam: Present: normal color, warm/dry Lymphatic Exam: Present: no adenopathy Ary Coma Scale - Assess Eye Opening: Spontaneous Motor: Obeys Commands Verbal: Inappropriate - Total Coma Scale Total: 13 ED Progress - Date and Time Seen: Date and Time: 05/16/18 18:45 patient unchanged, discussed case with dr ruiz accepted to observation for alterred mental status, possible pneumonia - Results and Orders Patient's Lab Results:: I have reviewed the patient's lab results. - Vital Signs Patient's Vital Signs:: I have reviewed the patient's vital signs. 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
[2018-05-16] MEDS ORDERED: LEVOFLOXACIN IN DEXTROSE 5 % 750 MG/150 ML BAG IV SCH (19:00)
[2018-05-16] MEDS ORDERED: LORazepam 1 MG TABLET PO PRN (21:35)
[2018-05-16] MEDS ORDERED: traMADol HCL 50 MG TABLET PO PRN (21:35)
[2018-05-16] MEDS ORDERED: ACETAMINOPHEN 325 MG TABLET PO PRN (21:35)
[2018-05-16 21:48] LABS: Albumin * 3.5 gm/dl (3.4-5.0); Anion Gap 12.4 mmol/L (6.8-13.8); BUN/Creatinine Ratio 8.8 (9.0-21.6); Bilirubin, Total 0.2 mg/dL (0.0-1.1); Ca. Corrected For Albumin 9.5 mg/dL (8.4-10.2); Calcium * 9.4 mg/dL (7.9-10.9); Carbon Dioxide 29.4 mmol/L (24-32.6); Potassium 3.8 mmol/L (3.4-4.6); Total Protein 6.9 gm/dL (6.2-8.2)
--- NOTE | 2018-05-16 22:50 | HP ---
Chief Complaint - Chief Complaint Date of Service: 05/16/18 Time of Service: 22:50 Chief Complaint: Confusion History of Present Illness: Sydnee is an 87 yo female with known dementia who was reported to be more confused than usual. She had a cough without fever or respiratory distress. She was brought to [facility] ER for evaluation. She had a chest xray that showed left lingular pneumonia. Her oxygen saturation was within normal limits. History is otherwise difficult based on delirium/dementia. No reported concerns. Medical History (Last Reviewed 05/16/18 @ 16:19 by Marlene Murcia RN) Frequent headaches (Acute) Chronic airway obstruction (Acute) Alzheimer disease (Acute) Hip pain Pelvic fracture Postmenopausal Surgical History: Surgical History (Last Reviewed 05/16/18 @ 16:19 by Marlene Murcia RN) H/O colonoscopy Onset Date: ~2015 History of appendectomy Onset Date: ~1939 History of hip surgery Onset Date: ~03/24/17 closed reduction, cephalo-medullary fixation left intertrochanteric femur fracture per Dr. Jones Hx of cholecystectomy Family History: Family History (Last Reviewed 05/16/18 @ 16:19 by Marlene Murcia RN) Father Prostate cancer Mother , unknown No problems noted. Social History: Preferred Language Kazakh Smoking Status Never smoker Abuse History No History of abuse Psych History Hx of Depression Alcohol Use none Drug Use none (Last Updated 12/30/17 @ 15:36 by YOLANDA Tom) No Social History Section defined Review Of Systems (GEN) - Review of Systems Additional Comments: Difficult secondary to delirium/dementia. Immunizations: IMMUNIZATION HX Immunizations Up to Date Yes History of Influenza Vaccine Yes Hx Pneumococcal Vaccination No Allergies/Adverse Reactions: Allergies Allergy/AdvReac Type Severity Reaction Status Date / Time codeine Allergy Mild Nausea Verified 05/16/18 16:19 Penicillins Allergy Mild Hives Verified 05/16/18 16:19 Sulfa (Sulfonamide Allergy Mild Nausea Verified 05/16/18 16:19 Antibiotics) Home Medications: HOME MEDICATIONS Ascorbic Acid [Vitamin C] 500 mg PO DAILY 03/23/17 [Last Taken Unknown] Cholecalciferol (Vitamin D3) [Vitamin D3] 1,000 unit PO DAILY 03/23/17 [Last Taken Unknown] Cyanocobalamin [Vitamin B-12] 1,000 mcg PO DAILY 03/23/17 [Last Taken Unknown] Folic Acid 1 mg PO DAILY 03/23/17 [Last Taken Unknown] Melatonin 1 mg PO HS PRN 03/23/17 [Last Taken Unknown] Pantoprazole Sodium [Protonix] 40 mg PO DAILY #30 tablet. 03/28/17 [Last Taken Unknown] LORazepam [Ativan] 1 mg PO Q8H PRN 05/08/17 [Last Taken Unknown] aspirin 81 mg chewable tablet 81 mg PO DAILY 12/25/17 [Last Taken Unknown] citalopram 20 mg tablet 20 mg PO DAILY 12/25/17 [Last Taken Unknown] donepezil 5 mg tablet 5 mg PO HS 12/25/17 [Last Taken Unknown] ferrous sulfate 325 mg (65 mg iron) tablet 325 mg PO DAILY tab 12/25/17 [Last Taken Unknown] omega-3 fatty acids 1,000 mg capsule 1,000 mg PO DAILY 12/30/17 [Last Taken Unknown] Acetaminophen [Tylenol] 650 mg PO Q4H PRN MDD 4gm 05/16/18 [Last Taken Unknown] Calcium Carbonate/Vitamin D3 [Calcium 600-Vit D3 400 Tablet] 1 each PO DAILY 05/16/18 [Last Taken Unknown] HYDROcodone/ACETAMINOPHEN [Lorcet 5-325 mg Tablet] 1 each PO Q6H PRN 05/16/18 [Last Taken Unknown] traMADol HCL [Tramadol HCl] 50 mg PO Q4H PRN 05/16/18 [Last Taken Unknown] Levofloxacin [Levaquin] 750 mg PO DAILY #6 tab 05/17/18 [Last Taken Unknown] Exam - Exam Vital Signs: Vital Signs - Last Taken Temp 36.8 C 05/16/18 20:00 Pulse 66 05/16/18 20:00 Resp 20 05/16/18 20:00 BP 176/72 H 05/16/18 20:00 Pulse Ox 96 05/16/18 20:00 Constitutional: Present: Alert, No distress. Absent: Oriented x3 Eye Exam: bilateral eye: normal inspection Respiratory: Present: no respiratory distress, crackles - left lobe Cardiovascular/Chest: Present: regular rate, rhythm, no murmur Peripheral Pulses: radial (R): 2+, radial (L): 2+ Abdomen: Present: Normal bowel sounds, soft, nontender, nondistended, no rebound tenderness Skin Exam: Present: normal color, warm/dry, no cyanosis Lymphatic: Present: no adenopathy Eye contact: Present: cooperative, good eye contact Diagnostic Studies: Abnormal Lab Results 05/16/18 05/16/18 05/16/18 Range/Units 16:29 16:55 17:00 RBC (4.2-5.4) M/mm3 MCH (27-31) pg Lymphocytes % (20-51) % Monocytes % (0.0-9) % Basophils % (0.0-1.0) % Lymphocytes # (1.5-3.5) k/mm3 Est GFR (Non-Af Amer) 54 L (60-130) mL/min BUN/Creatinine Ratio 8.8 L (9.0-21.6) ALT 13 L (19-67) U/L Procalcitonin Less than 0.05 L (0.05-0.50) ng/mL Ur Leukocyte Esterase 25 H (NEGATIVE) /ul Urine Bacteria 1+ H (NONE) 05/16/18 Range/Units 17:15 RBC 4.00 L (4.2-5.4) M/mm3 MCH 31.5 H (27-31) pg Lymphocytes % 16.7 L (20-51) % Monocytes % 11.8 H (0.0-9) % Basophils % 1.1 H (0.0-1.0) % Lymphocytes # 1.26 L (1.5-3.5) k/mm3 Est GFR (Non-Af Amer) (60-130) mL/min BUN/Creatinine Ratio (9.0-21.6) ALT (19-67) U/L Procalcitonin (0.05-0.50) ng/mL Ur Leukocyte Esterase (NEGATIVE) /ul Urine Bacteria (NONE) Laboratory Results WBC 7.6 K/mm3 (4.0-10.5) 05/16/18 17:15 RBC 4.00 M/mm3 (4.2-5.4) L 05/16/18 17:15 Hgb 12.6 gm/dL (12.5-16.0) 05/16/18 17:15 Hct 39.1 % (37.0-47.0) 05/16/18 17:15 MCV 97.8 fl (78-100) 05/16/18 17:15 MCH 31.5 pg (27-31) H 05/16/18 17:15 MCHC 32.2 g/dl (32-36) 05/16/18 17:15 RDW 12.7 % (11.5-14.0) 05/16/18 17:15 Plt Count 354 K/mm3 (150-450) 05/16/18 17:15 MPV 9.5 fl (8-12.5) 05/16/18 17:15 Immature Gran % (Auto) 0.40 % (0.001-0.429) 05/16/18 17:15 Immature Gran # (Auto) 0.03 K/mm3 (0.000-0.0310) 05/16/18 17:15 Neutrophils % 67.4 % (42-75.0) 05/16/18 17:15 Lymphocytes % 16.7 % (20-51) L 05/16/18 17:15 Monocytes % 11.8 % (0.0-9) H 05/16/18 17:15 Eosinophils % 2.6 % (0.0-3.0) 05/16/18 17:15 Basophils % 1.1 % (0.0-1.0) H 05/16/18 17:15 Nucleated RBC % 0.0 k/mm3 (0-1) 05/16/18 17:15 Neutrophils # 5.1 K/mm3 (1.3-6.0) 05/16/18 17:15 Lymphocytes # 1.26 k/mm3 (1.5-3.5) L 05/16/18 17:15 Monocytes # 0.9 k/mm3 (0.0-1.0) 05/16/18 17:15 Eosinophils # 0.2 k/mm3 (0.0-0.7) 05/16/18 17:15 Absolute Basophils 0.1 k/mm3 (0.0-0.1) 05/16/18 17:15 Sodium 141 mmol/L (132-142) 05/16/18 17:00 Plasma Sodium 141 mmol/L (130-142) 05/16/18 17:00 Potassium 3.8 mmol/L (3.4-4.6) 05/16/18 17:00 Chloride 103 mmol/L (97-106) 05/16/18 17:00 Carbon Dioxide 29.4 mmol/L (24-32.6) 05/16/18 17:00 Anion Gap 12.4 mmol/L (6.8-13.8) 05/16/18 17:00 BUN 9 mg/dL (3-23) 05/16/18 17:00 Creatinine 1.02 mg/dL (0.4-1.4) 05/16/18 17:00 Est GFR (Non-Af Amer) 54 mL/min (60-130) L 05/16/18 17:00 BUN/Creatinine Ratio 8.8 (9.0-21.6) L 05/16/18 17:00 Random Glucose 90 mg/dL (70-110) 05/16/18 17:00 Lactic Acid, Venous 1.2 mmol/L (0.4-2.0) 05/16/18 16:55 Calcium 9.4 mg/dL (7.9-10.9) 05/16/18 17:00 Calcium Adj for Albumin 9.5 mg/dL (8.4-10.2) 05/16/18 17:00 Total Bilirubin 0.2 mg/dL (0.0-1.1) 05/16/18 17:00 AST 14 U/L (0-48) 05/16/18 17:00 ALT 13 U/L (19-67) L 05/16/18 17:00 Alkaline Phosphatase 126 U/L (50-170) 05/16/18 17:00 Troponin I Less than 0.017 ng/mL (0.00-0.10) 05/16/18 17:15 C-Reactive Prot, Quant 0.3 mg/dL (0.0-0.9) 05/16/18 17:15 Total Protein 6.9 gm/dL (6.2-8.2) 05/16/18 17:00 Albumin 3.5 gm/dl (3.4-5.0) 05/16/18 17:00 Procalcitonin Less than 0.05 ng/mL (0.05-0.50) L 05/16/18 16:55 Urine Color Yellow 05/16/18 16:29 Urine Appearance Clear (CLEAR) 05/16/18 16:29 Urine pH 6.0 pH (5.0-7.0) 05/16/18 16:29 Ur Specific [place] 1.015 SP.GR. (1.005-1.010) 05/16/18 16:29 Urine Protein Negative mg/dL (NEGATIVE) 05/16/18 16:29 Urine Glucose (UA) Negative mg/dL (NEGATIVE) 05/16/18 16:29 Urine Ketones Negative mg/dL (NEGATIVE) 05/16/18 16:29 Urine Blood Negative /ul (NEGATIVE) 05/16/18 16:29 Urine Nitrate Negative (NEGATIVE) 05/16/18 16:29 Urine Bilirubin Negative mg/dl (NEGATIVE) 05/16/18 16:29 Urine Urobilinogen Normal EU/dl (NORMAL) 05/16/18 16:29 Ur Leukocyte Esterase 25 /ul (NEGATIVE) H 05/16/18 16:29 Urine RBC 0-5 /hpf (0-5) 05/16/18 16:29 Urine WBC 0-5 /hpf (0-5) 05/16/18 16:29 Ur Epithelial Cells 0-5 /hpf (0-5) 05/16/18 16:29 Ur Renal Epithelial Cell Trace /hpf (NONE) 05/16/18 16:29 Urine Bacteria 1+ (NONE) H 05/16/18 16:29 Urine Culture Comments Culture to follow 05/16/18 16:29 Assessment/Plan - Narrative Narrative: Sydnee is an 87 yo female with left lingular pneumonia. She has had some change in mentation from her baseline and history is poor. Therefore will admit to observation just to allow for further evaluation. If she does well and has no signs of respiratory distress will plan to discharge on oral antibiotics. Will start on levaquin at this time. - Assessment/Plan (1) Pneumonia Problem: Acute Qualifiers: Laterality: left Lung location: lower lobe of lung (2) Altered mental status Problem: Resolved (3) Alzheimer disease Problem: Acute
[2018-05-17] MEDS ORDERED: CYANOCOBALAMIN 1,000 MCG TABLET PO SCH (09:00)
[2018-05-17] MEDS ORDERED: CALCIUM CARBONATE/VITAMIN D3 1 TAB TABLET PO SCH (09:00)
[2018-05-17] MEDS ORDERED: PANTOPRAZOLE SODIUM 40 MG TABLET.EC PO SCH (09:00)
[2018-05-17] MEDS ORDERED: CHOLECALCIFEROL 1,000 UNIT CAPSULE PO SCH (09:00)
[2018-05-17] MEDS ORDERED: CITALOPRAM HYDROBROMIDE 20 MG TABLET PO SCH (09:00)
[2018-05-17] MEDS ORDERED: ASPIRIN 81 MG TAB.CHEW PO SCH (09:00)
[2018-05-17] MEDS ORDERED: FOLIC ACID 1 MG TABLET PO SCH (09:00)
[2018-05-17] MEDS ORDERED: FERROUS SULFATE 325 MG TABLET PO SCH (09:00)
[2018-05-17 09:24] LABS: Hematocrit 37.7 % (37.0-47.0); Hemoglobin 12.3 gm/dL (12.5-16.0); Mean Cell Volume 98.7 fl (78-100); Mean Corpuscular Hemoglobin 32.2 pg (27-31); Mean Corpuscular Hgb Conc 32.6 g/dl (32-36); Mean Platelet Volume 9.5 fl (8-12.5); Neutrophil # 5.6 K/mm3 (1.3-6.0); Neutrophil % 72.5 % (42-75.0); Platelet Count 301 K/mm3 (150-450); Red Blood Count 3.82 M/mm3 (4.2-5.4); Red Cell Distribution Width 12.8 % (11.5-14.0); White Blood Count 7.8 K/mm3 (4.0-10.5)
[2018-05-17 09:38] LABS: Albumin * 2.9 gm/dl (3.4-5.0); Anion Gap 11.7 mmol/L (6.8-13.8); BUN/Creatinine Ratio 6.8 (9.0-21.6); Bilirubin, Total 0.6 mg/dL (0.0-1.1); Ca. Corrected For Albumin 9.6 mg/dL (8.4-10.2); Carbon Dioxide 29.2 mmol/L (24-32.6); Potassium 3.9 mmol/L (3.4-4.6); Total Protein 6.4 gm/dL (6.2-8.2)
--- NOTE | 2018-05-17 11:45 | DS ---
(1) Pneumonia Problem: Acute Qualifiers: Laterality: left Lung location: lower lobe of lung (2) Altered mental status Problem: Resolved Description of Stay: ySdnee is an 87 yo female with chronic dementia who presented to the ER with acute hallucinations. Evaluation showed possible pneumonia in the left lingular area. She was started on levaquin. She had no respiratory distress, but did have a cough. Overall she was found to be medically stable and was admitted for observation. She did well overnight. She remains pleasantly confused but this appears to be her baseline. She had no respiratory distress and medically appears to be doing well. Due to new findings on chest xray will go ahead and treat with levaquin for 7 days. Will need a follow up chest xray in 2 months. Follow up with PCP as outpatient. Procedures Performed: none Results and Findings: Pending Mircobiology Results 05/16/18 Unknown Urine,Voided Urine Culture - Preliminary No Growth Lab Pending Results 05/16/18 16:29: Urine Color Yellow, Urine Appearance Clear, Urine pH 6.0, Ur Specific [place] 1.015, Urine Protein Negative, Urine Glucose (UA) Negative, Urine Ketones Negative, Urine Blood Negative, Urine Nitrate Negative, Urine Bilirubin Negative, Urine Urobilinogen Normal, Ur Leukocyte Esterase 25 H, Urine RBC 0-5, Urine WBC 0-5, Ur Epithelial Cells 0-5, Ur Renal Epithelial Cell Trace, Urine Bacteria 1+ H, Urine Culture Comments Culture to follow 05/16/18 16:55: Lactic Acid, Venous 1.2 05/16/18 16:55: Procalcitonin Less than 0.05 L 05/16/18 17:00: Sodium 141, Plasma Sodium 141, Potassium 3.8, Chloride 103, Carbon Dioxide 29.4, Anion Gap 12.4, BUN 9, Creatinine 1.02, Est GFR (Non-Af Amer) 54 L, BUN/Creatinine Ratio 8.8 L, Random Glucose 90, Calcium 9.4, Calcium Adj for Albumin 9.5, Total Bilirubin 0.2, AST 14, ALT 13 L, Alkaline Phosphatase 126, Total Protein 6.9, Albumin 3.5 05/16/18 17:15: WBC 7.6, RBC 4.00 L, Hgb 12.6, Hct 39.1, MCV 97.8, MCH 31.5 H, MCHC 32.2, RDW 12.7, Plt Count 354, MPV 9.5, Immature Gran % (Auto) 0.40, Immature Gran # (Auto) 0.03, Neutrophils % 67.4, Lymphocytes % 16.7 L, Monocytes % 11.8 H, Eosinophils % 2.6, Basophils % 1.1 H, Nucleated RBC % 0.0, Neutrophils # 5.1, Lymphocytes # 1.26 L, Monocytes # 0.9, Eosinophils # 0.2, Absolute Basophils 0.1 05/16/18 17:15: Troponin I Less than 0.017, C-Reactive Prot, Quant 0.3 05/17/18 09:14: WBC 7.8, RBC 3.82 L, Hgb 12.3 L, Hct 37.7, MCV 98.7, MCH 32.2 H, MCHC 32.6, RDW 12.8, Plt Count 301, MPV 9.5, Immature Gran % (Auto) 0.30, Immature Gran # (Auto) 0.02, Neutrophils % 72.5, Lymphocytes % 13.0 L, Monocytes % 10.7 H, Eosinophils % 2.5, Basophils % 1.0, Nucleated RBC % 0.0, Neutrophils # 5.6, Lymphocytes # 1.01 L, Monocytes # 0.8, Eosinophils # 0.2, Absolute Basophils 0.1 05/17/18 09:14: Sodium 142, Plasma Sodium 142, Potassium 3.9, Chloride 105, Carbon Dioxide 29.2, Anion Gap 11.7, BUN 6, Creatinine 0.88, Est GFR (Non-Af Amer) 64, BUN/Creatinine Ratio 6.8 L, Random Glucose 101, Calcium 9.0, Calcium Adj for Albumin 9.6, Total Bilirubin 0.6, AST 11, ALT 11 L, Alkaline Phosphatase 112, Total Protein 6.4, Albumin 2.9 L Discharge Location: [facility] Disposition: Home self-care Condition: Fair Discharge Activity: Activity as tolerated Discharge Diet: General/regular food Referrals: Glenny Hoover DO [Primary Care Provider] - One Week Problem Oriented Discharge Instructions to Patient/Family: Community-Acquired Pneumonia, Adult, [id number] Prescriptions (Any new or edited meds): Levofloxacin [Levaquin] 750 mg PO DAILY #6 tab Complete Home Medications List: Complete Home Medication List: Ascorbic Acid [Vitamin C] 500 mg PO DAILY 03/23/17 Cholecalciferol (Vitamin D3) [Vitamin D3] 1,000 unit PO DAILY 03/23/17 Cyanocobalamin [Vitamin B-12] 1,000 mcg PO DAILY 03/23/17 Folic Acid 1 mg PO DAILY 03/23/17 Melatonin 1 mg PO HS PRN 03/23/17 Pantoprazole Sodium [Protonix] 40 mg PO DAILY #30 tablet. 03/28/17 LORazepam [Ativan] 1 mg PO Q8H PRN 05/08/17 aspirin 81 mg chewable tablet 81 mg PO DAILY 12/25/17 citalopram 20 mg tablet 20 mg PO DAILY 12/25/17 donepezil 5 mg tablet 5 mg PO HS 12/25/17 ferrous sulfate 325 mg (65 mg iron) tablet 325 mg PO DAILY tab 12/25/17 omega-3 fatty acids 1,000 mg capsule 1,000 mg PO DAILY 12/30/17 Acetaminophen [Tylenol] 650 mg PO Q4H PRN MDD 4gm 05/16/18 Calcium Carbonate/Vitamin D3 [Calcium 600-Vit D3 400 Tablet] 1 each PO DAILY 05/16/18 HYDROcodone/ACETAMINOPHEN [Lorcet 5-325 mg Tablet] 1 each PO Q6H PRN 05/16/18 traMADol HCL [Tramadol HCl] 50 mg PO Q4H PRN 05/16/18 Levofloxacin [Levaquin] 750 mg PO DAILY #6 tab 05/17/18
[2018-05-17 13:27] VITALS: BP 156/86
[2018-05-17] MEDS ORDERED: DONEPEZIL HCL 5 MG TABLET PO SCH (21:00)
== END 2018-05-17 13:43 | disposition home or self-care (01) ==
LOC: MS 16:14 → ER 16:14 → MS 20:00
PROVIDERS: ADMIT Family Medicine; ATTEND Family Medicine
DX: G30.9 Alzheimer's disease, unspecified; R41.82 Altered mental status, unspecified; J18.9 Pneumonia, unspecified organism; F02.80 Dementia in other diseases classified elsewhere, unspecified severity, without behavioral disturbance, psychotic disturbance, mood disturbance, and anxiety
CPT/HCPCS: 36415; 70450; 71020; 71046; 80053; 81001; 83605; 84145; 84484; 85025; 86140; 87040; 87081; 87086; 93005; 99283; G0378

== ENCOUNTER 2019-07-26 17:26 | Inpatient (IN) ==
[2019-07-26 17:51] LABS: Hematocrit 37.5 % (37.0-47.0); Hemoglobin 12.1 gm/dL (12.5-16.0); Mean Cell Volume 100.3 fl (78-100); Mean Corpuscular Hemoglobin 32.4 pg (27-31); Mean Corpuscular Hgb Conc 32.3 g/dl (32-36); Mean Platelet Volume 9.4 fl (8-12.5); Neutrophil % 79.3 % (42-75.0); Platelet Count 353 K/mm3 (150-450); Red Blood Count 3.74 M/mm3 (4.2-5.4); Red Cell Distribution Width 12.9 % (11.5-14.0); White Blood Count 13.9 K/mm3 (4.0-10.5)
[2019-07-26 17:59] LABS: Anion Gap 12.9 mmol/L (6.8-13.8); BUN/Creatinine Ratio 10.2 (9.0-21.6); Blood Urea Nitrogen 9 mg/dL (3-23); Calcium * 9.4 mg/dL (7.9-10.9); Chloride 103 mmol/L (97-106); Glucose * 134 mg/dL (70-110); Potassium 3.9 mmol/L (3.4-4.6); Sodium 141 mmol/L (132-142)
[2019-07-26] MEDS ORDERED: fentaNYL CITRATE/PF 50 MCG/ML AMPUL IV ONE ×3 (18:05→20:09)
--- NOTE | 2019-07-26 18:15 | ERNOTE ---
Lower Extremity HPI - Narrative Date of Service: 07/26/19 - General Lower Extremities Pain: hip: right Time Seen by Provider: 07/26/19 17:31 Source: patient, EMS Exam Limitations: dementia - Immun/Allergies/Home Medications Immunizations: IMMUNIZATION HX Immunizations Up to Date Yes History of Influenza Vaccine More Information Required Hx Pneumococcal Vaccination More Information Required Allergies/Adverse Reactions: Allergies Allergy/AdvReac Type Severity Reaction Status Date / Time codeine Allergy Mild Nausea Verified 07/26/19 20:58 Penicillins Allergy Mild Hives Verified 07/26/19 20:58 Sulfa (Sulfonamide Allergy Mild Nausea Verified 07/26/19 20:58 Antibiotics) Home Medications: HOME MEDICATIONS Ascorbic Acid [Vitamin C] 500 mg PO DAILY 03/23/17 [Last Taken 07/26/19 08:00] Cholecalciferol (Vitamin D3) [Vitamin D3] 1,000 unit PO DAILY 03/23/17 [Last Taken 07/26/19 08:00] Cyanocobalamin [Vitamin B-12] 1,000 mcg PO DAILY 03/23/17 [Last Taken 07/26/19 08:00] Folic Acid 1 mg PO DAILY 03/23/17 [Last Taken 07/26/19 08:00] Melatonin 1 mg PO HS PRN 03/23/17 [Last Taken 07/25/19 20:00] LORazepam [Ativan] 1 mg PO Q8H PRN 05/08/17 [Last Taken Unknown] aspirin 81 mg chewable tablet 81 mg PO DAILY 12/25/17 [Last Taken 07/26/19 08:00] citalopram 20 mg tablet 20 mg PO DAILY 12/25/17 [Last Taken 07/26/19 08:00] donepezil 5 mg tablet 5 mg PO HS 12/25/17 [Last Taken 07/25/19 20:00] ferrous sulfate 325 mg (65 mg iron) tablet 325 mg PO DAILY tab 12/25/17 [Last Taken 07/26/19 08:00] omega-3 fatty acids 1,000 mg capsule 1,000 mg PO DAILY 12/30/17 [Last Taken 0 07/26/19 08:00] Acetaminophen [Tylenol] 650 mg PO Q4H PRN MDD 4gm 05/16/18 [Last Taken 07/25/19] famotidine 40 mg tablet 40 mg PO DAILY #30 tab 07/08/19 [Last Taken 07/25/19 20:00] Calcium Carbonate/Vitamin D3 [Calcium 600-Vit D3 400 Tablet] 1 ea PO DAILY 07/26/19 [Last Taken 07/26/19 08:00] HYDROcodone/ACETAMINOPHEN [[place] 5-325] 1 ea PO Q6H PRN #20 tab 07/30/19 [Last Taken Unknown] Magnesium Hydroxide [Milk Of Magnesia] 30 ml PO DAILY PRN #1 bottle 07/30/19 [Last Taken Unknown] Rivaroxaban [Xarelto] 20 mg PO DAILY #45 tab 07/30/19 [Last Taken Unknown] Sennosides/Docusate Sodium [Senokot-S] 2 tab PO HS #60 tab 07/30/19 [Last Taken Unknown] - History of Present Illness Narrative: 88-year-old female presents from long-term care facility for fall resulting in right hip pain. EMS reports concern for possible right hip fracture. Because of fall unknown. Fall was not witnessed. Due to patient's dementia additional details surrounding the fall remain unknown. Patient has a past medical history of previous left hip fracture requiring ORIF. Patient reports her current pain right now is minimal she is not moving. Occurred: just prior to arrival Location of Incident: home Method of Injury: Reports: fell Reason for Fall: Reports: unknown Loss of Consciousness: Reports: no loss of consciousness Modifying Factors - (Improves): Reports: rest Modifying Factors - (Worsens): Reports: movement Associated Symptoms: Reports: unable to bear weight Other Injuries: Reports: none Review of Systems - Narrative Narrative: REVIEW OF SYSTEMS GENERAL: Negative for any nausea, vomiting, fevers, chills, or weight loss. HEENT: Sore throats, congestion, changes in vision, changes in hearing, CARDIAC: Negative for any chest pain, dyspnea, or palpitations. PULMONARY: Negative for any shortness of breath, cough, or wheezing. GASTROINTESTINAL: Negative for any abdominal pain, nausea, vomiting, constipation, or diarrhea. GENITOURINARY: Negative for any dysuria, changes in urine output. INTEGUMENTARY: Negative for any rashes. NEUROLOGIC: Negative for changes in vision or headaches. Extremities: Positive for right hip pain. Medical History (Last Reviewed 07/26/19 @ 17:53 by Rei Wade MD) Frequent headaches (Acute) Chronic airway obstruction (Acute) Alzheimer disease (Acute) Hip pain Hx of recurrent urinary tract infection Pelvic fracture Postmenopausal Surgical History: Surgical History (Last Reviewed 07/26/19 @ 17:53 by Rei Wade MD) H/O colonoscopy Onset Date: ~2015 History of appendectomy Onset Date: ~1940 History of hip surgery Onset Date: ~03/24/17 closed reduction, cephalo-medullary fixation left intertrochanteric femur fracture per Dr. Jones Hx of cholecystectomy Family History: Family History (Last Reviewed 07/26/19 @ 17:54 by Rei Wade MD) Father Prostate cancer Mother , unknown No problems noted. Social History: (Last Reviewed 07/26/19 @ 17:54 by Rei Wade MD) Social History: halfway: Yes halfway comment: Sal Savage Marital status: lives independently: No current occupational status: retired Highest education level completed: high school graduate Service: No Tobacco: Smoking Status: Never smoker tobacco type: cigarettes Alcohol: alcohol intake: former Substance Use: substance use type: does not use Dietary Habits: caffeine: Yes Type: coffee Physical Exam - Physical Exam General Appearance: Present: alert, no apparent distress Head Exam: Present: normal inspection, no evidence of injury Eye Exam: Normal inspection: bilateral Ears, Nose, Throat: Absent: dry mucous membranes Respiratory: Present: no respiratory distress, normal breath sounds Cardiovascular/Chest: Present: normal peripheral pulses Peripheral Pulses: N=norm/S=strong/W=weak/B=bound/A=absent: Dorsalis-pedis (R): Normal, Dorsalis-pedis (L): Normal Gastrointestinal/Abdominal: Present: nontender Extremity Exam: Present: other - Pain in right hip, no pelvic instability noted on exam. Neurological Exam: Present: alert, disoriented to time Skin Exam: Present: normal color Progress - Results and Orders Patient's Lab Results:: I have reviewed the patient's lab results. - Vital Signs Patient's Vital Signs:: I have reviewed the patient's vital signs. Vital Signs: Vital Signs 07/26/19 17:28 Temperature 36.5 C Pulse Rate 81 Respiratory Rate 16 Blood Pressure 155/74 H O2 Sat by Pulse Oximetry 91 L - CT/Ultrasound CT/Ultrasound Narrative: Acute, mildly displaced right intertrochanteric femur fracture - Progress/Reassessment Chief Complaint: Lower Extremity Pain/ Injury Progress:: Improved Progress Note-Subjective: 07/31/19 10:29 Initial xray did not show fracture of the right hip; however, given her exam and clinical suspicion a CT scan was ordered. CT showed an acute, mildly displaced right intertrochanteric femur fracture. Orthopedics was consulted and pt was admitted for further treatment at [facility]. - Transfer of Care Expected Disposition: Admit Departure Clinical Impression: Hip fracture, right Qualifiers: Encounter type: initial encounter Fracture type: closed Qualified Code(s): S72.001A - Fracture of unspecified part of neck of right femur, initial encounter for closed fracture - Departure Disposition: Still a patient Condition: Stable
[2019-07-26 19:32] LABS: Urine Appearance Clear (CLEAR); Urine Bilirubin Negative (NEGATIVE); Urine Blood Negative /ul (NEGATIVE); Urine Color Yellow; Urine Ketone Negative (NEGATIVE)
[2019-07-26 19:33] LABS: Urine Bacteria None Seen; Urine Nitrite Negative (NEGATIVE); Urine Protein Negative (NEGATIVE); Urine RBC None Seen /hpf (0-5); Urine Specific Gravity 1.025 SP.GR. (1.005-1.010); Urine Urobilinogen Normal (NORMAL); Urine WBC None Seen /hpf (0-5)
[2019-07-26] MEDS ORDERED: MORPHINE SULFATE 4 MG/ML SYRG IV PRN (20:19)
[2019-07-26] MEDS ORDERED: ONDANSETRON HCL/PF 2 MG/ML VIAL IV PRN (21:42)
[2019-07-26] MEDS: DEXTROSE 5%-0.5 NORMAL SALINE 1,000 ML IV PRN (22:12)
[2019-07-27] MEDS ORDERED: ceFAZolin SODIUM 1 GM VIAL IV PRN (07:43)
--- NOTE | 2019-07-27 07:43 | CONS ---
[facility] - General Date of Service: 07/27/19 Narrative: 88 year old [facility] patient with dementia. Transported to [facility] ER due to hip pain and difficulty ambulating. Found to have non-displaced right intertrochanteric femur fracture. No other complaints. Source: family, RN/MD, old records Exam Limitations: clinical condition - History of Present Illness Timing/Duration: 24 hours Severity: mild Modifying Factors - (Worsens): Reports: movement Modifying Factors - (Improves): Reports: immobilization Associated Symptoms: denies symptoms Allergies/Adverse Reactions: Allergies codeine Allergy (Mild, Verified 07/26/19 20:58) Nausea Penicillins Allergy (Mild, Verified 07/26/19 20:58) Hives Sulfa (Sulfonamide Antibiotics) Allergy (Mild, Verified 07/26/19 20:58) Nausea Home Medications: Home Medications Medication Instructions Recorded Last Taken Ascorbic Acid [Vitamin C] 500 mg PO DAILY 03/23/17 07/26/19 08:00 Cholecalciferol (Vitamin D3) 1,000 unit PO DAILY 03/23/17 07/26/19 08:00 [Vitamin D3] Cyanocobalamin [Vitamin B-12] 1,000 mcg PO DAILY 03/23/17 07/26/19 08:00 Folic Acid 1 mg PO DAILY 03/23/17 07/26/19 08:00 Melatonin 1 mg PO HS PRN 03/23/17 07/25/19 20:00 LORazepam [Ativan] 1 mg PO Q8H PRN 05/08/17 Unknown aspirin 81 mg chewable tablet 81 mg PO DAILY 12/25/17 07/26/19 08:00 citalopram 20 mg tablet 20 mg PO DAILY 12/25/17 07/26/19 08:00 donepezil 5 mg tablet 5 mg PO HS 12/25/17 07/25/19 20:00 ferrous sulfate 325 mg (65 mg 325 mg PO DAILY tab 12/25/17 07/26/19 08:00 iron) tablet omega-3 fatty acids 1,000 mg 1,000 mg PO DAILY 12/30/17 07/26/19 08:00 capsule Acetaminophen [Tylenol] 650 mg PO Q4H PRN MDD 4gm 05/16/18 07/25/19 famotidine 40 mg tablet 40 mg PO DAILY #30 tab 07/08/19 07/25/19 20:00 Calcium Carbonate/Vitamin D3 1 ea PO DAILY 07/26/19 07/26/19 08:00 [Calcium 600-Vit D3 400 Tablet] Procedures Drainage of Bladder, Via Natural or Artificial Opening (05/08/17) Medications - Medications Current Medications: Current Medications Dextrose/Sodium Chloride (Dextrose 5%-0.45%Ns) 1,000 mls @ 60 mls/hr IV .[id number] PRN PRN Reason: HYDRATION Stop: 08/25/19 21:42 Last Admin: 07/26/19 22:12 Dose: 60 mls/hr Documented by: Morphine Sulfate (Morphine Sulfate) 4 mg IV Q20M PRN PRN Reason: Pain Stop: 08/25/19 20:31 Last Admin: 07/26/19 20:23 Dose: 4 mg Documented by: Ondansetron HCl (Zofran) 4 mg IV Q6H PRN PRN Reason: Nausea And Vomiting Stop: 08/25/19 21:43 Last Admin: 07/26/19 22:12 Dose: 4 mg Documented by: Review of Systems - Review of Systems Narrative: negative except above Physical Examination - Exam Narrative: RLE - palp DP, sensation intact to light touch, pain with hip ROM, able to move toes and ankle, thigh soft, no lacerations, no gross deformity Vital Signs: Vital Signs - Last Taken Temp 37.4 C 07/27/19 07:04 Pulse 86 07/27/19 07:04 Resp 18 07/27/19 07:04 BP 153/68 H 07/27/19 07:04 Pulse Ox 96 07/27/19 07:04 O2 Oxygen Delivery Method Nasal Cannula Constitutional: Present: Alert - Results and Findings: Narrative: Hip xrays and CT right hip - non-displaced right intertrochanteric femur fracture, s/p left hip IM fixation Lab/Microbiology results last 24 hrs: Abnormal/Pending Laboratory Last 24 HRS 07/26/19 07/26/19 17:40 17:40 WBC 13.9 H RBC 3.74 L Hgb 12.1 L MCV 100.3 H MCH 32.4 H Immature Gran % (Auto) 0.80 H Immature Gran # (Auto) 0.11 H Neutrophils % 79.3 H Lymphocytes % 9.9 L Neutrophils # 11.0 H Lymphocytes # 1.38 L Monocytes # 1.1 H Random Glucose 134 H - Assessments/Findings (1) Intertrochanteric fracture of right hip Diagnosis(s): Plan for IM fixation of right hip if medically stable. Risks and recovery reviewed. Problem: Acute Qualifiers: Encounter type: initial encounter Fracture type: closed Fracture alignment: nondisplaced Qualified Code(s): S72.144A - Nondisplaced intertrochanteric fracture of right femur, initial encounter for closed fracture
--- NOTE | 2019-07-27 08:36 | HP ---
Chief Complaint - Chief Complaint Date of Service: 07/27/19 Time of Service: 00:30 Chief Complaint: Fall, hip pain History of Present Illness: Hanna is an 88 yo female of a [facility] with dementia care. She had a fall and reported right hip pain. There was no witness to the fall but she reports falling by tripping. She denies any other symptoms then hip pain. Specifically she reports no chest pain, shortness of breath, dizziness, or lightheadedness. She reports pain is controlled and she does not have pain unless she moves. She reports she has been feeling well otherwise. She denies any recent change in health and no recent illnesses. She does have dementia and does appear confused at times. Initially she did not recall she was in the hospital for hip fracture. Medical History (Last Reviewed 07/26/19 @ 20:58 by Santi Julien RN) Frequent headaches (Acute) Chronic airway obstruction (Acute) Alzheimer disease (Acute) Hip pain Hx of recurrent urinary tract infection Pelvic fracture Postmenopausal Surgical History: Surgical History (Last Reviewed 07/26/19 @ 20:58 by Santi Julien RN) H/O colonoscopy Onset Date: ~2015 History of appendectomy Onset Date: ~194 History of hip surgery Onset Date: ~03/24/17 closed reduction, cephalo-medullary fixation left intertrochanteric femur fracture per Dr. Jones Hx of cholecystectomy Family History: Family History (Last Reviewed 07/26/19 @ 20:58 by Santi Julien RN) Father Prostate cancer Mother , unknown No problems noted. Social History: (Last Reviewed 07/26/19 @ 20:58 by Santi Jluien RN) Social History: usp: Yes usp comment: [facility] Marital status: lives independently: No current occupational status: retired Highest education level completed: high school graduate Service: No Tobacco: Smoking Status: Never smoker tobacco type: cigarettes Alcohol: alcohol intake: former Substance Use: substance use type: does not use Dietary Habits: caffeine: Yes Type: coffee Review Of Systems (GEN) - Review of Systems Generalized/Overall Review: Absent: Weakness, Chills, Fever EENTM: Present: No Symptoms Reported Respiratory: Absent: Cough, Shortness of Breath Cardiac: Absent: Chest Pain, Edema Abdominal: Absent: Nausea, Vomiting Genitourinary: Present: No Symptoms Reported Musculoskeletal: Present: Joint Pain Neurological: Present: No Symptoms Reported Skin: Present: No Symptoms Reported Endocrine: Present: No Symptoms Reported Immunizations: IMMUNIZATION HX Immunizations Up to Date Yes History of Influenza Vaccine More Information Required Hx Pneumococcal Vaccination More Information Required Allergies/Adverse Reactions: Allergies Allergy/AdvReac Type Severity Reaction Status Date / Time codeine Allergy Mild Nausea Verified 07/26/19 20:58 Penicillins Allergy Mild Hives Verified 07/26/19 20:58 Sulfa (Sulfonamide Allergy Mild Nausea Verified 07/26/19 20:58 Antibiotics) Home Medications: HOME MEDICATIONS Ascorbic Acid [Vitamin C] 500 mg PO DAILY 03/23/17 [Last Taken 07/26/19 08:00] Cholecalciferol (Vitamin D3) [Vitamin D3] 1,000 unit PO DAILY 03/23/17 [Last Taken 07/26/19 08:00] Cyanocobalamin [Vitamin B-12] 1,000 mcg PO DAILY 03/23/17 [Last Taken 07/26/19 08:00] Folic Acid 1 mg PO DAILY 03/23/17 [Last Taken 07/26/19 08:00] Melatonin 1 mg PO HS PRN 03/23/17 [Last Taken 07/25/19 20:00] LORazepam [Ativan] 1 mg PO Q8H PRN 05/08/17 [Last Taken Unknown] aspirin 81 mg chewable tablet 81 mg PO DAILY 12/25/17 [Last Taken 07/26/19 08:00] citalopram 20 mg tablet 20 mg PO DAILY 12/25/17 [Last Taken 07/26/19 08:00] donepezil 5 mg tablet 5 mg PO HS 12/25/17 [Last Taken 07/25/19 20:00] ferrous sulfate 325 mg (65 mg iron) tablet 325 mg PO DAILY tab 12/25/17 [Last Taken 07/26/19 08:00] omega-3 fatty acids 1,000 mg capsule 1,000 mg PO DAILY 12/30/17 [Last Taken 08/13 08:00] Acetaminophen [Tylenol] 650 mg PO Q4H PRN MDD 4gm 05/16/18 [Last Taken 07/25/19] famotidine 40 mg tablet 40 mg PO DAILY #30 tab 07/08/19 [Last Taken 07/25/19 20:00] Calcium Carbonate/Vitamin D3 [Calcium 600-Vit D3 400 Tablet] 1 ea PO DAILY 07/26/19 [Last Taken 07/26/19 08:00] Exam - Exam Vital Signs: Vital Signs - Last Taken Temp 37.4 C 07/27/19 07:04 Pulse 86 07/27/19 07:04 Resp 18 07/27/19 07:04 BP 153/68 H 07/27/19 07:04 Pulse Ox 96 07/27/19 07:04 Constitutional: Present: Alert, Oriented x3, Cooperative ENT Exam: Present: hearing grossly normal Respiratory: Present: lungs clear, normal breath sounds Cardiovascular/Chest: Present: regular rate, rhythm, no murmur Peripheral Pulses: radial (R): 2+, radial (L): 2+ Abdomen: Present: Normal bowel sounds, soft, nontender, nondistended Diagnostic Studies: Abnormal Lab Results 07/26/19 07/26/19 Range/Units 17:40 17:40 WBC 13.9 H (4.0-10.5) K/mm3 RBC 3.74 L (4.2-5.4) M/mm3 Hgb 12.1 L (12.5-16.0) gm/dL MCV 100.3 H (78-100) fl MCH 32.4 H (27-31) pg Immature Gran % (Auto) 0.80 H (0.001-0.429) % Immature Gran # (Auto) 0.11 H (0.000-0.0310) K/mm3 Neutrophils % 79.3 H (42-75.0) % Lymphocytes % 9.9 L (20-51) % Neutrophils # 11.0 H (1.3-6.0) K/mm3 Lymphocytes # 1.38 L (1.5-3.5) k/mm3 Monocytes # 1.1 H (0.0-1.0) k/mm3 Random Glucose 134 H (70-110) mg/dL Laboratory Results WBC 13.9 K/mm3 (4.0-10.5) H 07/26/19 17:40 RBC 3.74 M/mm3 (4.2-5.4) L 07/26/19 17:40 Hgb 12.1 gm/dL (12.5-16.0) L 07/26/19 17:40 Hct 37.5 % (37.0-47.0) 07/26/19 17:40 MCV 100.3 fl (78-100) H 07/26/19 17:40 MCH 32.4 pg (27-31) H 07/26/19 17:40 MCHC 32.3 g/dl (32-36) 07/26/19 17:40 RDW 12.9 % (11.5-14.0) 07/26/19 17:40 Plt Count 353 K/mm3 (150-450) 07/26/19 17:40 MPV 9.4 fl (8-12.5) 07/26/19 17:40 Immature Gran % (Auto) 0.80 % (0.001-0.429) H 07/26/19 17:40 Immature Gran # (Auto) 0.11 K/mm3 (0.000-0.0310) H 07/26/19 17:40 Neutrophils % 79.3 % (42-75.0) H 07/26/19 17:40 Lymphocytes % 9.9 % (20-51) L 07/26/19 17:40 Monocytes % 8.0 % (0.0-9) 07/26/19 17:40 Eosinophils % 1.5 % (0.0-3.0) 07/26/19 17:40 Basophils % 0.5 % (0.0-1.0) 07/26/19 17:40 Nucleated RBC % 0.0 k/mm3 (0-1) 07/26/19 17:40 Neutrophils # 11.0 K/mm3 (1.3-6.0) H 07/26/19 17:40 Lymphocytes # 1.38 k/mm3 (1.5-3.5) L 07/26/19 17:40 Monocytes # 1.1 k/mm3 (0.0-1.0) H 07/26/19 17:40 Eosinophils # 0.2 k/mm3 (0.0-0.7) 07/26/19 17:40 Absolute Basophils 0.1 k/mm3 (0.0-0.1) 07/26/19 17:40 Sodium 141 mmol/L (132-142) 07/26/19 17:40 Plasma Sodium 142 mmol/L (130-142) 07/26/19 17:40 Potassium 3.9 mmol/L (3.4-4.6) 07/26/19 17:40 Chloride 103 mmol/L (97-106) 07/26/19 17:40 Carbon Dioxide 29.0 mmol/L (24-32.6) 07/26/19 17:40 Anion Gap 12.9 mmol/L (6.8-13.8) 07/26/19 17:40 BUN 9 mg/dL (3-23) 07/26/19 17:40 Creatinine 0.88 mg/dL (0.4-1.4) 07/26/19 17:40 Est GFR (Non-Af Amer) 64 mL/min (60-130) 07/26/19 17:40 BUN/Creatinine Ratio 10.2 (9.0-21.6) 07/26/19 17:40 Random Glucose 134 mg/dL (70-110) H 07/26/19 17:40 Calcium 9.4 mg/dL (7.9-10.9) 07/26/19 17:40 Urine Color Yellow 07/26/19 19:00 Urine Appearance Clear (CLEAR) 07/26/19 19:00 Urine pH 6.0 pH (5.0-7.0) 07/26/19 19:00 Ur Specific Mcintosh 1.025 SP.GR. (1.005-1.010) 07/26/19 19:00 Urine Protein Negative mg/dL (NEGATIVE) 07/26/19 19:00 Urine Glucose (UA) Negative mg/dL (NEGATIVE) 07/26/19 19:00 Urine Ketones Negative mg/dL (NEGATIVE) 07/26/19 19:00 Urine Blood Negative /ul (NEGATIVE) 07/26/19 19:00 Urine Nitrate Negative (NEGATIVE) 07/26/19 19:00 Urine Bilirubin Negative mg/dl (NEGATIVE) 07/26/19 19:00 Urine Urobilinogen Normal EU/dl (NORMAL) 07/26/19 19:00 Ur Leukocyte Esterase Negative /ul (NEGATIVE) 07/26/19 19:00 Urine RBC None seen /hpf (0-5) 07/26/19 19:00 Urine WBC None seen /hpf (0-5) 07/26/19 19:00 Ur Epithelial Cells None seen /hpf (0-5) 07/26/19 19:00 Urine Bacteria None seen (NONE) 07/26/19 19:00 Urine Culture Comments No culture indicated 07/26/19 19:00 Assessment/Plan - Narrative Narrative: Patient was evaluated for pre-operative risks. Based on Revised Cardiovascular Risk Index she has a risk of 1% for cardiovascular event. I feel she is medically cleared for surgery. Benefits of surgery outweigh risks. Bloodwork and EKG reviewed and there are no significant abnormalities to postpone surgery. Other than hip pain she has no reported symptoms and physical exam is positive for dementia but otherwise unremarkable. Medically cleared for orthopedic surgery. She takes a baby aspirin, but otherwise is not on blood thinners. - Assessment/Plan (1) Intertrochanteric fracture of right hip Problem: Acute Qualifiers: Encounter type: initial encounter Fracture type: closed Fracture alignment: nondisplaced Qualified Code(s): S72.144A - Nondisplaced intertrochanteric fracture of right femur, initial encounter for closed fracture (2) Dementia Problem: Chronic Qualifiers: Dementia type: unspecified type Dementia behavioral disturbance: without behavioral disturbance Qualified Code(s): F03.90 - Unspecified dementia without behavioral disturbance
[2019-07-27] MEDS ORDERED: MORPHINE SULFATE 2 MG/ML DISP.SYRIN IV PRN (09:17)
--- NOTE | 2019-07-27 10:32 | ANES ---
Anesthesia Pre Procedure Eval Vitals/Labs: Last Vital Signs Temp 37.4 C 07/27/19 07:04 Pulse 86 07/27/19 07:04 Resp 18 07/27/19 07:04 BP 153/68 H 07/27/19 07:04 Pulse Ox 96 07/27/19 09:32 HOME MEDICATIONS Ascorbic Acid [Vitamin C] 500 mg PO DAILY 03/23/17 [Last Taken 07/26/19 08:00] Cholecalciferol (Vitamin D3) [Vitamin D3] 1,000 unit PO DAILY 03/23/17 [Last Taken 07/26/19 08:00] Cyanocobalamin [Vitamin B-12] 1,000 mcg PO DAILY 03/23/17 [Last Taken 07/26/19 08:00] Folic Acid 1 mg PO DAILY 03/23/17 [Last Taken 07/26/19 08:00] Melatonin 1 mg PO HS PRN 03/23/17 [Last Taken 07/25/19 20:00] LORazepam [Ativan] 1 mg PO Q8H PRN 05/08/17 [Last Taken Unknown] aspirin 81 mg chewable tablet 81 mg PO DAILY 12/25/17 [Last Taken 07/26/19 08:00] citalopram 20 mg tablet 20 mg PO DAILY 12/25/17 [Last Taken 07/26/19 08:00] donepezil 5 mg tablet 5 mg PO HS 12/25/17 [Last Taken 07/25/19 20:00] ferrous sulfate 325 mg (65 mg iron) tablet 325 mg PO DAILY tab 12/25/17 [Last Taken 07/26/19 08:00] omega-3 fatty acids 1,000 mg capsule 1,000 mg PO DAILY 12/30/17 [Last Taken 07/26/19 08:00] Acetaminophen [Tylenol] 650 mg PO Q4H PRN MDD 4gm 05/16/18 [Last Taken 07/25/19] famotidine 40 mg tablet 40 mg PO DAILY #30 tab 07/08/19 [Last Taken 07/25/19 20:00] Calcium Carbonate/Vitamin D3 [Calcium 600-Vit D3 400 Tablet] 1 ea PO DAILY 07/26/19 [Last Taken 07/26/19 08:00] Allergies/Adverse Reactions: Allergies Allergy/AdvReac Type Severity Reaction Status Date / Time codeine Allergy Mild Nausea Verified 07/26/19 20:58 Penicillins Allergy Mild Hives Verified 07/26/19 20:58 Sulfa (Sulfonamide Allergy Mild Nausea Verified 07/26/19 20:58 Antibiotics) - Planned Procedure Planned Procedure: Right Hip Fracture Post Fall Medication List Reviewed:: Yes Allergies Verified: Yes Medical History (Last Reviewed 07/27/19 @ 10:31 by Perico Murrell CRNA) Frequent headaches (Acute) Chronic airway obstruction (Acute) Alzheimer disease (Acute) Hip pain Hx of recurrent urinary tract infection Pelvic fracture Postmenopausal Surgical History (Last Reviewed 07/27/19 @ 10:31 by Perico Murrell CRNA) H/O colonoscopy Onset Date: ~2015 History of appendectomy Onset Date: ~194 History of hip surgery Onset Date: ~03/24/17 closed reduction, cephalo-medullary fixation left intertrochanteric femur fracture per Dr. Jones Hx of cholecystectomy Family History (Last Reviewed 07/27/19 @ 10:31 by Percio Murrell CRNA) Father Prostate cancer Mother , unknown No problems noted. - Family Anesthesia History Family History:: no untoward family reactions to anesthesia - Airway/Neck/Teeth Within Normal Limits:: Yes Denture Type: Full upper Neck Exam: full range of motion Mallampatti Score: 2 Thyromental (T-M) distance: > 6 cm Mandibulo Hyoid distance: > 3 cm - Respiratory Respiratory History: COPD Respiratory Physical: lungs clear Smoking Status: Never smoker Sleep Apnea currently treated: No Sleep Apnea by current assessment: No - Cardiovascular Cardiac History: hypertension Tolerate Activity: Poor Heart Sounds: S1 & S2, Regular - Gastrointestinal NPO since: MN - Anesthesia Assessment and Plan ASA Class: PS, III Anesthesia Type Plan: Spinal Planned difficult intubation/equipment available: No
[2019-07-27] MEDS ORDERED: MIDAZOLAM HCL/PF 5 MG/ML VIAL ONE (11:35)
[2019-07-27] MEDS ORDERED: PROPOFOL VIAL IV ONE (11:35)
[2019-07-27] MEDS ORDERED: BUPIVACAINE HCL/PF 10 ML VIAL ONE (11:35)
[2019-07-27] MEDS ORDERED: ceFAZolin SODIUM 1 GM VIAL ONE (11:52)
[2019-07-27] MEDS: RINGER'S SOLUTION,LACTATED 1,000 ML IV PRN ×2 (11:55→12:50)
[2019-07-27] MEDS: DEXTROSE 5%-0.5 NORMAL SALINE 1,000 ML IV PRN ×2 (11:55→13:31)
[2019-07-27] MEDS ORDERED: ACETAMINOPHEN 500 MG TABLET PO PRN (12:46)
[2019-07-27] MEDS ORDERED: MAGNESIUM HYDROXIDE 30 ML UDC PO PRN (12:46)
[2019-07-27] MEDS ORDERED: MAG HYDROX/ALUMINUM HYD/SIMETH 30 ML UDC PO PRN (12:46)
--- NOTE | 2019-07-27 12:46 | OR ---
Operative Report - Dictated Report Narrative: Date: 07/27/2019 Surgeon: Diego Jones M.D. Rose Grader: Ashish Wang PA-C (provided an essential set of skilled educated handset assisted with transfer, positioning, prepping, draping, placement of instruments, insertion of implants, irrigation, closure wounds, and placement of dressings all which could not be performed by the available surgical crew) Preoperative diagnosis: Closed minimally displaced right intertrochanteric femur fracture Postoperative diagnosis: Closed minimally displaced right intertrochanteric femur fracture Operations and procedures: 1. Closed reduction, cephalo-medullary fixation right intertrochanteric femur fracture 2. Intraoperative interpretation of radiographs Anesthesia: Spinal Specimens: None Estimated blood loss: 50 Milliliters Retained implants: [employer] Trigen InterTAN 130 degree size 10 mm by 18 centimeter nail with 105 millimeter lag screw and 100 millimeter compression screw, with distal locking screw Complications: None Indications for procedure: Mrs. Sumner is a 88-year-old female who injured the right leg after falling at a nursing facility. They were admitted to the hospital after being evaluated in the emergency department. Once the medical provider felt that they were stable for surgical treatment, the risks and benefits alternatives were discussed. The risks of , blood clots, bleeding, infection, nerve/tendon/blood vessel injury, malunion, nonunion, failure of implants, painful implants, arthrosis, and need for additional procedures were discussed. The extremity was marked and consent was obtained on the floor. Procedure: After marking the operative extremity on the floor, the patient was taken to the operating room. A timeout was performed. IV antibiotics consisting of Ancef were administered. A spinal anesthetic was induced by anesthesia, and the patient was then placed onto a fracture table with a well-padded perineal post. The nonoperative leg was placed in a well-padded traction boot in slight extension without any traction with an SCD on the leg. The operative leg was placed in a well-padded traction boot. Longitudinal traction, internal rotation, and flexion were utilized in order to reduce the fracture. Preliminary images were attained utilizing C-arm in both the AP and lateral views. This confirmed that we had obtained adequate visualization of the fracture as well as reduction. Next the hip was then prepped and draped in a standard sterile fashion. Next the guidewire was placed percutaneously proximal to the greater trochanter to diallo a starting point at the tip of the greater trochanter centered on the lateral view. This was passed down to the level below the lesser trochanter. A scalpel was utilized in order to dissect down to the greater trochanter in order to place the soft tissue protector down to bone. The entry drill was then placed down the proximal femur to the level of the lesser trochanter. The proper size nail was then selected and impacted into place. The outrigger was utilized in order to confirm the appropriate depth of the nail. Using the alignment device on the outrigger, an incision was made over the lateral femur. Sharp dissection was carried through the iliotibial band down to the proximal femur. The guidewire was placed into the femoral head in a center- center position on AP and lateral views. The tip-apex distance of less than 25 mm combined was obtained. Once we felt that we had placed a guidewire in the appropriate position, it was measured. Next the compression screw site was drilled through the lateral femoral cortex. This was then drilled down to the appropriate depth, again confirming that we are within the confines the bone. The derotational bar was then placed and the lag screw was drilled. The lag screw was then secured in place seating fully ensuring that we were within the confines of the bone. The compression screw was then inserted allowing for compression while releasing the traction on the leg. Using C-arm this was visualized to allow for compression across the fracture site. Once is felt that we had adequately stabilized the intertrochanteric fracture, the distal interlocking screw was placed in a dynamic position. It was confirmed to be the appropriate length and within the nail on both AP and lateral views. The nail was secured allowing for controlled compression and the outrigger was removed. The wounds were then thoroughly irrigated. Final images were obtained. The hip was placed through range of motion and showed no crepitance. The deep fascia was closed with 0 Vicryl, the subcutaneous tissue with 3-0 Vicryl, and the skin was closed with david. Sterile dressings of Xeroform, 4 x 4, and tape were applied. All sponge, sharp, and instrument counts were correct prior to closing the wounds. The patient was then awoken and transfe rred to the postanesthesia care unit in stable condition.
--- NOTE | 2019-07-27 13:30 | ANES ---
Post Anesthesia Assessment - Vital Signs Vitals: Last Vital Signs Temp 36.6 C 07/27/19 13:00 Pulse 104 H 07/27/19 13:25 Resp 12 07/27/19 13:25 BP 128/51 07/27/19 13:25 Pulse Ox 96 07/27/19 13:25 Airway Patency: Normal - Mental Status Level Of Consciousness: Awake - Pain Level Pain Score: 0 - N/V Assessment Nausea/Vomiting Presence: None Dehydration:: No
--- NOTE | 2019-07-27 13:30 | ANES ---
Post Anesthesia Discharge - Transfer of Care Transfer of Care handoff given to nurse: Yes - Discharge from PACU Discharge from PACU when meets criteria: Yes
[2019-07-27] MEDS: ceFAZolin SODIUM 1 GM in DEXTROSE 5 % IN WATER 100 ML IV SCH ×4 (14:25→21:35)
[2019-07-27] MEDS: HYDROcodone/ACETAMINOPHEN 1 EACH TABLET PO PRN ×2 (14:59→18:55)
[2019-07-27] MEDS: SENNOSIDES/DOCUSATE SODIUM 1 TAB TABLET PO SCH (21:43)
[2019-07-28] MEDS: DEXTROSE 5%-0.5 NORMAL SALINE 1,000 ML IV PRN (02:43)
[2019-07-28] MEDS: ceFAZolin SODIUM 1 GM in DEXTROSE 5 % IN WATER 100 ML IV SCH ×2 (02:44)
[2019-07-28 06:34] LABS: Hematocrit 32.3 % (37.0-47.0); Hemoglobin 10.5 gm/dL (12.5-16.0); Mean Cell Volume 101.3 fl (78-100); Mean Corpuscular Hemoglobin 32.9 pg (27-31); Mean Corpuscular Hgb Conc 32.5 g/dl (32-36); Mean Platelet Volume 9.9 fl (8-12.5); Platelet Count 255 K/mm3 (150-450); Red Blood Count 3.19 M/mm3 (4.2-5.4); Red Cell Distribution Width 12.9 % (11.5-14.0); White Blood Count 13.3 K/mm3 (4.0-10.5)
[2019-07-28 06:54] LABS: Albumin * 2.6 gm/dl (3.4-5.0); Anion Gap 10.9 mmol/L (6.8-13.8); BUN/Creatinine Ratio 12.7 (9.0-21.6); Bilirubin, Total 0.7 mg/dL (0.0-1.1); Ca. Corrected For Albumin 9.1 mg/dL (8.4-10.2); Calcium * 8.3 mg/dL (7.9-10.9); Carbon Dioxide 28.9 mmol/L (24-32.6); Potassium 3.8 mmol/L (3.4-4.6); Total Protein 5.8 gm/dL (6.2-8.2)
[2019-07-28] MEDS: HYDROcodone/ACETAMINOPHEN 1 EACH TABLET PO PRN ×3 (07:17→22:19)
--- NOTE | 2019-07-28 07:59 | PN ---
Subjective - Date and Time Seen Date: 07/28/19 Time: 07:57 Subjective Narrative: Patient reports no significant pain at this time. She has no complaints. No nausea or vomiting. Objective Objective Narrative: Patient currently is up in chair eating breakfast. She responds to questions appropriately. Bandages clean dry intact. She is able to plantarflex and dorsiflex right foot. Calf is supple. Hemoglobin is stable at 13.3 - Vitals Vitals: Last Vital Signs Temp 36.8 C 07/28/19 06:14 Pulse 94 07/28/19 06:14 Resp 18 07/28/19 06:14 BP 162/54 H 07/28/19 06:14 Pulse Ox 95 07/28/19 06:14 - Abnormal Lab Findings Abnormal Lab Findings: Abnormal Lab Results 07/28/19 07/28/19 Range/Units 06:16 06:16 WBC 13.3 H (4.0-10.5) K/mm3 RBC 3.19 L (4.2-5.4) M/mm3 Hgb 10.5 L (12.5-16.0) gm/dL Hct 32.3 L (37.0-47.0) % MCV 101.3 H (78-100) fl MCH 32.9 H (27-31) pg Random Glucose 135 H (70-110) mg/dL AST 67 H (0-48) U/L ALT 80 H (19-67) U/L Total Protein 5.8 L (6.2-8.2) gm/dL Albumin 2.6 L (3.4-5.0) gm/dl - Exam Constitutional: Present: Alert, Cooperative, No distress Cauti Physician Documentation - Urinary Catheter Management catheter Date of Insertion: 07/26/19 Time of Insertion: 18:18 Assessment/Plan - Problems/Diagnosis (1) Intertrochanteric fracture of right hip Problem: Acute Narrative: Hanna is doing well at this time. Her pain is controlled. She is in no distress. Will have her work with therapy today. Anticoagulation. (2) Dementia Problem: Chronic Qualifiers: Dementia type: unspecified type Dementia behavioral disturbance: without behavioral disturbance Qualified Code(s): F03.90 - Unspecified dementia without behavioral disturbance (3) Alzheimer disease Problem: Acute
--- NOTE | 2019-07-28 10:23 | PN ---
Subjective - Date and Time Seen Date: 07/28/19 Time: 08:52 Subjective Narrative: She states her hip pain is well controlled with the pain medication. Objective - Review of Systems Generalized/Overall Review: Denies: Chills, Fever Respiratory: Denies: Shortness of Breath Cardiac: Denies: Chest Pain Abdominal: Denies: Abdominal Pain Musculoskeletal Complaints: Reports: Joint Pain - Right hip Misc: All systems neg except as marked - Vitals Vitals: Last Vital Signs Temp 36.4 C 07/28/19 10:00 Pulse 85 07/28/19 10:00 Resp 20 07/28/19 10:00 BP 104/47 07/28/19 10:00 Pulse Ox 94 07/28/19 10:00 - Abnormal Lab Findings Abnormal Lab Findings: Abnormal Lab Results 07/28/19 07/28/19 Range/Units 06:16 06:16 WBC 13.3 H (4.0-10.5) K/mm3 RBC 3.19 L (4.2-5.4) M/mm3 Hgb 10.5 L (12.5-16.0) gm/dL Hct 32.3 L (37.0-47.0) % MCV 101.3 H (78-100) fl MCH 32.9 H (27-31) pg Random Glucose 135 H (70-110) mg/dL AST 67 H (0-48) U/L ALT 80 H (19-67) U/L Total Protein 5.8 L (6.2-8.2) gm/dL Albumin 2.6 L (3.4-5.0) gm/dl - Exam Constitutional: Present: Alert, Cooperative, Well developed, Well nourished, No distress, Elderly ENT Exam: Present: normal ENT inspection, hearing grossly normal Neck: Present: non-tender, supple. Absent: lymphadenopathy (R), lymphadenopathy (L) Respiratory: Present: lungs clear, no respiratory distress, no accessory muscle use, No wheezing. Absent: crackles, rhonchi Cardiovascular/Chest: Present: normal peripheral pulses, regular rate, rhythm, no edema, no murmur Abdomen: Present: Normal bowel sounds, soft, nontender Extremity: Present: no pedal edema Skin Exam: Present: normal color, warm/dry Neurologic: Present: normal mood/affect Appearance: Present: appropriate appearance, appropriate insight Eye contact: Present: cooperative Thoughts: Present: normal thought pattern, normal mood /affect Cauti Physician Documentation - Urinary Catheter Management catheter Date of Insertion: 07/26/19 Time of Insertion: 18:18 Date of Removal: 07/28/19 Time of Removal: 08:00 Assessment/Plan Plan Narrative: 88-year-old female with a past medical history of Alzheimer's disease, recurrent UTIs, hip pain, GERD, anxiety, depression presents from [facility], dementia unit status post fall. She was found to have a right hip fracture and is status post closed reduction cephalo-medullary fixation right intertrochanteric femur fracture on July 27, [address] Jones. Today, she states her pain is well controlled with the current medication regimen. She is tolerating her diet. She had difficulty ambulating and was Tez lifted to her chair this morning by the nursing staff. - Problems/Diagnosis (1) Depression Problem: Chronic (2) Fall Problem: Acute Qualifiers: Encounter type: initial encounter Qualified Code(s): W19.XXXA - Unspecified fall, initial encounter (3) Intertrochanteric fracture of right hip Problem: Acute Qualifiers: Encounter type: initial encounter Fracture type: closed Fracture alignment: nondisplaced Qualified Code(s): S72.144A - Nondisplaced intertrochanteric fracture of right femur, initial encounter for closed fracture (4) Alzheimer disease Problem: Acute
[2019-07-28] MEDS: RIVAROXABAN 20 MG TABLET PO SCH (10:37)
[2019-07-28] MEDS ORDERED: Melatonin 1 MG PO PRN (12:53)
[2019-07-28] MEDS: SENNOSIDES/DOCUSATE SODIUM 1 TAB TABLET PO SCH (22:20)
[2019-07-28] MEDS: DONEPEZIL HCL 5 MG TABLET PO SCH (22:20)
[2019-07-29] MEDS: HYDROcodone/ACETAMINOPHEN 1 EACH TABLET PO PRN ×3 (05:47→15:20)
[2019-07-29 06:34] LABS: Hematocrit 32.2 % (37.0-47.0); Hemoglobin 10.3 gm/dL (12.5-16.0); Mean Platelet Volume 9.8 fl (8-12.5); Neutrophil # 8.7 K/mm3 (1.3-6.0); Neutrophil % 79.1 % (42-75.0); Platelet Count 242 K/mm3 (150-450); Red Blood Count 3.22 M/mm3 (4.2-5.4); Red Cell Distribution Width 12.7 % (11.5-14.0); White Blood Count 11.1 K/mm3 (4.0-10.5)
[2019-07-29 06:49] LABS: Albumin * 2.3 gm/dl (3.4-5.0); Anion Gap 9.2 mmol/L (6.8-13.8); BUN/Creatinine Ratio 13.5 (9.0-21.6); Bilirubin, Total 0.8 mg/dL (0.0-1.1); Ca. Corrected For Albumin 9.4 mg/dL (8.4-10.2); Calcium * 8.4 mg/dL (7.9-10.9); Carbon Dioxide 29.7 mmol/L (24-32.6); Potassium 3.9 mmol/L (3.4-4.6); Total Protein 5.8 gm/dL (6.2-8.2)
[2019-07-29] MEDS: RIVAROXABAN 20 MG TABLET PO SCH (09:03)
[2019-07-29] MEDS: FAMOTIDINE 20 MG TABLET PO SCH (09:03)
[2019-07-29] MEDS: FOLIC ACID 1 MG TABLET PO SCH (09:03)
[2019-07-29] MEDS: FERROUS SULFATE 325 MG TABLET PO SCH (09:04)
[2019-07-29] MEDS: CITALOPRAM HYDROBROMIDE 20 MG TABLET PO SCH (09:04)
[2019-07-29] MEDS: CHOLECALCIFEROL 1,000 UNIT CAPSULE PO SCH (09:04)
--- NOTE | 2019-07-29 12:38 | PN ---
Subjective - Date and Time Seen Date: 07/29/19 Time: 08:52 Subjective Narrative: She feels good, denies pain. She states that she only has pain in her right hip when she tries to walk. She is tolerating her diet. Objective - Review of Systems Generalized/Overall Review: Denies: Chills, Fever Respiratory: Denies: Shortness of Breath Cardiac: Denies: Chest Pain Abdominal: Denies: Abdominal Pain Musculoskeletal Complaints: Reports: Joint Pain - Right hip Misc: All systems neg except as marked - Vitals Vitals: Last Vital Signs Temp 36.4 C 07/29/19 07:00 Pulse 93 07/29/19 07:00 Resp 18 07/29/19 07:00 BP 142/69 07/29/19 07:00 Pulse Ox 95 07/29/19 10:16 - Abnormal Lab Findings Abnormal Lab Findings: Abnormal Lab Results 07/29/19 07/29/19 Range/Units 06:23 06:23 WBC 11.1 H (4.0-10.5) K/mm3 RBC 3.22 L (4.2-5.4) M/mm3 Hgb 10.3 L (12.5-16.0) gm/dL Hct 32.2 L (37.0-47.0) % MCH 32.0 H (27-31) pg Immature Gran % (Auto) 0.50 H (0.001-0.429) % Immature Gran # (Auto) 0.06 H (0.000-0.0310) K/mm3 Neutrophils % 79.1 H (42-75.0) % Lymphocytes % 6.4 L (20-51) % Monocytes % 10.7 H (0.0-9) % Neutrophils # 8.7 H (1.3-6.0) K/mm3 Lymphocytes # 0.71 L (1.5-3.5) k/mm3 Monocytes # 1.2 H (0.0-1.0) k/mm3 Random Glucose 126 H (70-110) mg/dL AST 55 H (0-48) U/L Total Protein 5.8 L (6.2-8.2) gm/dL Albumin 2.3 L (3.4-5.0) gm/dl - Exam Constitutional: Present: Alert, Cooperative, Well developed, Well nourished, Elderly ENT Exam: Present: hearing grossly normal Neck: Present: supple. Absent: lymphadenopathy (R), lymphadenopathy (L) Respiratory: Present: lungs clear, no respiratory distress, no accessory muscle use, No wheezing. Absent: crackles, rhonchi Cardiovascular/Chest: Present: normal peripheral pulses, regular rate, rhythm, no murmur Abdomen: Present: Normal bowel sounds, soft, nontender Extremity: Present: no pedal edema Skin Exam: Present: normal color, warm/dry Neurologic: Present: alert, normal mood/affect Appearance: Present: appropriate appearance Eye contact: Present: cooperative Thoughts: Present: normal thought pattern Cauti Physician Documentation - Urinary Catheter Management catheter Date of Insertion: 07/26/19 Time of Insertion: 18:18 Date of Removal: 07/28/19 Time of Removal: 08:00 Assessment/Plan Plan Narrative: 88-year-old female with a past medical history of Alzheimer's disease, recurrent UTIs, hip pain, GERD, anxiety, depression presents from [facility], dementia unit status post fall. She was found to have a right hip fracture and is status post closed reduction cephalo-medullary fixation right intertrochanteric femur fracture on July 27, [address] Jones. Today, she states her pain is well controlled with the current medication regimen. She is tolerating her diet. We are awaiting discharge placement. Plan #1 continue with pain management, physical therapy, Occupational Therapy #2 continue with home medications for comorbidities #3 continue with DVT prophylaxis. - Problems/Diagnosis (1) Depression Problem: Chronic (2) Fall Problem: Acute Qualifiers: Encounter type: initial encounter Qualified Code(s): W19.XXXA - Unspecified fall, initial encounter (3) Intertrochanteric fracture of right hip Problem: Acute Qualifiers: Encounter type: initial encounter Fracture type: closed Fracture alignment: nondisplaced Qualified Code(s): S72.144A - Nondisplaced intertrochanteric fracture of right femur, initial encounter for closed fracture (4) Alzheimer disease Problem: Acute
[2019-07-29] MEDS: DONEPEZIL HCL 5 MG TABLET PO SCH (20:48)
[2019-07-29] MEDS: SENNOSIDES/DOCUSATE SODIUM 1 TAB TABLET PO SCH (20:48)
[2019-07-30 06:28] LABS: Hematocrit 31.1 % (37.0-47.0); Hemoglobin 10.2 gm/dL (12.5-16.0); Mean Cell Volume 98.4 fl (78-100); Mean Corpuscular Hemoglobin 32.3 pg (27-31); Mean Corpuscular Hgb Conc 32.8 g/dl (32-36); Mean Platelet Volume 10.3 fl (8-12.5); Neutrophil % 75.7 % (42-75.0); Platelet Count 284 K/mm3 (150-450); Red Blood Count 3.16 M/mm3 (4.2-5.4); Red Cell Distribution Width 12.4 % (11.5-14.0); White Blood Count 10.6 K/mm3 (4.0-10.5)
[2019-07-30 06:34] LABS: Albumin * 2.4 gm/dl (3.4-5.0); Bilirubin, Total 0.7 mg/dL (0.0-1.1); Ca. Corrected For Albumin 9.7 mg/dL (8.4-10.2); Calcium * 8.7 mg/dL (7.9-10.9); Carbon Dioxide 29.4 mmol/L (24-32.6); Potassium 3.4 mmol/L (3.4-4.6); Total Protein 6.1 gm/dL (6.2-8.2)
[2019-07-30] MEDS: HYDROcodone/ACETAMINOPHEN 1 EACH TABLET PO PRN (07:48)
--- NOTE | 2019-07-30 08:05 | PN ---
Subjective - Date and Time Seen Date: 07/30/19 Time: 08:03 Subjective Narrative: Doing well. Sitting in chair getting ready to walk with nursing. No complaints other than mild pain. Objective - Vitals Vitals: Last Vital Signs Temp 36.8 C 07/30/19 07:25 Pulse 108 H 07/30/19 07:25 Resp 24 H 07/30/19 07:25 BP 123/75 07/30/19 07:25 Pulse Ox 87 L 07/30/19 07:25 - Abnormal Lab Findings Abnormal Lab Findings: Abnormal Lab Results 07/30/19 07/30/19 Range/Units 06:13 06:13 WBC 10.6 H (4.0-10.5) K/mm3 RBC 3.16 L (4.2-5.4) M/mm3 Hgb 10.2 L (12.5-16.0) gm/dL Hct 31.1 L (37.0-47.0) % MCH 32.3 H (27-31) pg Immature Gran % (Auto) 0.70 H (0.001-0.429) % Immature Gran # (Auto) 0.07 H (0.000-0.0310) K/mm3 Neutrophils % 75.7 H (42-75.0) % Lymphocytes % 8.4 L (20-51) % Monocytes % 13.1 H (0.0-9) % Neutrophils # 8.0 H (1.3-6.0) K/mm3 Lymphocytes # 0.89 L (1.5-3.5) k/mm3 Monocytes # 1.4 H (0.0-1.0) k/mm3 Random Glucose 126 H (70-110) mg/dL Total Protein 6.1 L (6.2-8.2) gm/dL Albumin 2.4 L (3.4-5.0) gm/dl - Exam Exam Narrative: RLE : thigh soft, dressings not in place but no sign of infection. moving leg to command, minimal pain with ROM Cauti Physician Documentation - Urinary Catheter Management catheter Date of Insertion: 07/26/19 Time of Insertion: 18:18 Date of Removal: 07/28/19 Time of Removal: 08:00 Assessment/Plan - Problems/Diagnosis (1) Intertrochanteric fracture of right hip Problem: Acute Qualifiers: Encounter type: subsequent encounter Fracture type: closed Fracture alignment: nondisplaced Fracture healing: with routine healing Qualified Code(s): S72.144D - Nondisplaced intertrochanteric fracture of right femur, subsequent encounter for closed fracture with routine healing Narrative: OK to transfer from ortho standpoint. Continue with anticoagulation x 6 weeks. Ice to hip. Keep dry and covered at all times. RICHARD hose to Right leg, follow- up in 2-3 weeks. PT - WBAT and ROM as tolerated.
--- NOTE | 2019-07-30 09:20 | DS ---
(1) Depression Problem: Chronic (2) Fall Problem: Acute Qualifiers: Encounter type: initial encounter Qualified Code(s): W19.XXXA - Unspecified fall, initial encounter (3) Intertrochanteric fracture of right hip Problem: Acute Qualifiers: Encounter type: subsequent encounter Fracture type: closed Fracture alignment: nondisplaced Fracture healing: with routine healing Qualified Code(s): S72.144D - Nondisplaced intertrochanteric fracture of right femur, subsequent encounter for closed fracture with routine healing (4) Alzheimer disease Problem: Acute Hospital Course: 88-year-old female with a past medical history of Alzheimer's disease, recurrent UTIs, hip pain, GERD, anxiety, depression presents from [facility] living [facility], dementia unit status post fall. She was found to have a right hip fracture and is status post closed reduction cephalo-medullary fixation right intertrochanteric femur fracture on July 27, [address] Jones. She is doing well, she has been titrated off the oxygen. She will be discharged today to rehab and obtain PT, OT and speech therapy. She will need anticoagulation with Xarelto for 6 weeks postop. Patient is appropriate for the memory care unit. Procedures Performed: see notes below List Procedures: closed reduction cephalo-medullary fixation right intertrochanteric femur fracture on July 27, [address] Jones. Results and Findings: Lab Pending Results 07/26/19 17:40: WBC 13.9 H, RBC 3.74 L, Hgb 12.1 L, Hct 37.5, MCV 100.3 H, MCH 32.4 H, MCHC 32.3, RDW 12.9, Plt Count 353, MPV 9.4, Immature Gran % (Auto) 0.80 H, Immature Gran # (Auto) 0.11 H, Neutrophils % 79.3 H, Lymphocytes % 9.9 L, Monocytes % 8.0, Eosinophils % 1.5, Basophils % 0.5, Nucleated RBC % 0.0, Neutrophils # 11.0 H, Lymphocytes # 1.38 L, Monocytes # 1.1 H, Eosinophils # 0.2, Absolute Basophils 0.1 07/26/19 17:40: Sodium 141, Plasma Sodium 142, Potassium 3.9, Chloride 103, Carbon Dioxide 29.0, Anion Gap 12.9, BUN 9, Creatinine 0.88, Est GFR (Non-Af Amer) 64, BUN/Creatinine Ratio 10.2, Random Glucose 134 H, Calcium 9.4 07/26/19 19:00: Urine Color Yellow, Urine Appearance Clear, Urine pH 6.0, Ur Specific [place] 1.025, Urine Protein Negative, Urine Glucose (UA) Negative, Urine Ketones Negative, Urine Blood Negative, Urine Nitrate Negative, Urine Bilirubin Negative, Urine Urobilinogen Normal, Ur Leukocyte Esterase Negative, Urine RBC None seen, Urine WBC None seen, Ur Epithelial Cells None seen, Urine Bacteria None seen, Urine Culture Comments No culture indicated 07/28/19 06:16: WBC 13.3 H, RBC 3.19 L, Hgb 10.5 L, Hct 32.3 L, MCV 101.3 H, MCH 32.9 H, MCHC 32.5, RDW 12.9, Plt Count 255, MPV 9.9 07/28/19 06:16: Sodium 137, Plasma Sodium 138, Potassium 3.8, Chloride 101, Carbon Dioxide 28.9, Anion Gap 10.9, BUN 10, Creatinine 0.79, Est GFR (Non-Af Amer) 73, BUN/Creatinine Ratio 12.7, Random Glucose 135 H, Calcium 8.3, Calcium Adj for Albumin 9.1, Total Bilirubin 0.7, AST 67 H, ALT 80 H, Alkaline Phosphatase 112, Total Protein 5.8 L, Albumin 2.6 L 07/29/19 06:23: WBC 11.1 H, RBC 3.22 L, Hgb 10.3 L, Hct 32.2 L, MCV 100.0, MCH 32.0 H, MCHC 32.0, RDW 12.7, Plt Count 242, MPV 9.8, Immature Gran % (Auto) 0.50 H, Immature Gran # (Auto) 0.06 H, Neutrophils % 79.1 H, Lymphocytes % 6.4 L, Monocytes % 10.7 H, Eosinophils % 2.8, Basophils % 0.5, Nucleated RBC % 0.0, Neutrophils # 8.7 H, Lymphocytes # 0.71 L, Monocytes # 1.2 H, Eosinophils # 0.3, Absolute Basophils 0.1 07/29/19 06:23: Sodium 137, Plasma Sodium 137, Potassium 3.9, Chloride 102, Carbon Dioxide 29.7, Anion Gap 9.2, BUN 10, Creatinine 0.74, Est GFR (Non-Af Amer) 79, BUN/Creatinine Ratio 13.5, Random Glucose 126 H, Calcium 8.4, Calcium Adj for Albumin 9.4, Total Bilirubin 0.8, AST 55 H, ALT 56, Alkaline Phosphatase 164, Total Protein 5.8 L, Albumin 2.3 L 07/30/19 06:13: WBC 10.6 H, RBC 3.16 L, Hgb 10.2 L, Hct 31.1 L, MCV 98.4, MCH 32.3 H, MCHC 32.8, RDW 12.4, Plt Count 284, MPV 10.3, Immature Gran % (Auto) 0.70 H, Immature Gran # (Auto) 0.07 H, Neutrophils % 75.7 H, Lymphocytes % 8.4 L, Monocytes % 13.1 H, Eosinophils % 1.5, Basophils % 0.6, Nucleated RBC % 0.0, Neutrophils # 8.0 H, Lymphocytes # 0.89 L, Monocytes # 1.4 H, Eosinophils # 0.2, Absolute Basophils 0.1 07/30/19 06:13: Sodium 139, Plasma Sodium 139, Potassium 3.4, Chloride 103, Carbon Dioxide 29.4, Anion Gap 10.0, BUN 10, Creatinine 0.77, Est GFR (Non-Af Amer) 75, BUN/Creatinine Ratio 13.0, Random Glucose 126 H, Calcium 8.7, Calcium Adj for Albumin 9.7, Total Bilirubin 0.7, AST 30, ALT 40, Alkaline Phosphatase 149, Total Protein 6.1 L, Albumin 2.4 L Discharge Location: [facility] - He did say Disposition: SNF Condition: Stable Level of Care: SNF Discharge Activity: Weight bearing - Weightbearing as tolerated diet per to do the meds Discharge Diet: General/regular food Intermediate Therapy: Physical Therapy, Occupation Therapy, Speech Therapy - Okay so it is not normal Additional Patient Instructions (free text): Plan for discharge to [facility] for therapies, with PT and OT to evaluate and treat. Prescriptions (Any new or edited meds): Magnesium Hydroxide [Milk Of Magnesia] 30 ml PO DAILY PRN #1 bottle PRN Reason: Constipation Transmission Status: Pending to [facility] HYDROcodone/ACETAMINOPHEN [[place] 5-325] 1 ea PO Q6H PRN #20 tab PRN Reason: Moderate Pain (Pain Scale 4-6) Transmission Status: Sent to [facility] Sennosides/Docusate Sodium [Senokot-S] 2 tab PO HS #60 tab Transmission Status: Pending to [facility] Rivaroxaban [Xarelto] 20 mg PO DAILY #45 tab Transmission Status: Pending to [facility] Complete Home Medications List: Complete Home Medication List: Ascorbic Acid [Vitamin C] 500 mg PO DAILY 03/23/17 Cholecalciferol (Vitamin D3) [Vitamin D3] 1,000 unit PO DAILY 03/23/17 Cyanocobalamin [Vitamin B-12] 1,000 mcg PO DAILY 03/23/17 Folic Acid 1 mg PO DAILY 03/23/17 Melatonin 1 mg PO HS PRN 03/23/17 LORazepam [Ativan] 1 mg PO Q8H PRN 05/08/17 aspirin 81 mg chewable tablet 81 mg PO DAILY 12/25/17 citalopram 20 mg tablet 20 mg PO DAILY 12/25/17 donepezil 5 mg tablet 5 mg PO HS 12/25/17 ferrous sulfate 325 mg (65 mg iron) tablet 325 mg PO DAILY tab 12/25/17 omega-3 fatty acids 1,000 mg capsule 1,000 mg PO DAILY 12/30/17 Acetaminophen [Tylenol] 650 mg PO Q4H PRN MDD 4gm 05/16/18 famotidine 40 mg tablet 40 mg PO DAILY #30 tab 07/08/19 Calcium Carbonate/Vitamin D3 [Calcium 600-Vit D3 400 Tablet] 1 ea PO DAILY 07/26/19 HYDROcodone/ACETAMINOPHEN [[place] 5-325] 1 ea PO Q6H PRN #20 tab 07/30/19 Magnesium Hydroxide [Milk Of Magnesia] 30 ml PO DAILY PRN #1 bottle 07/30/19 Rivaroxaban [Xarelto] 20 mg PO DAILY #45 tab 07/30/19 Sennosides/Docusate Sodium [Senokot-S] 2 tab PO HS #60 tab 07/30/19
[2019-07-30 09:33] VITALS: BP 118/56
[2019-07-30] MEDS: CITALOPRAM HYDROBROMIDE 20 MG TABLET PO SCH (09:42)
[2019-07-30] MEDS: FERROUS SULFATE 325 MG TABLET PO SCH (09:42)
[2019-07-30] MEDS: FAMOTIDINE 20 MG TABLET PO SCH (09:43)
[2019-07-30] MEDS: FOLIC ACID 1 MG TABLET PO SCH (09:43)
[2019-07-30] MEDS: CHOLECALCIFEROL 1,000 UNIT CAPSULE PO SCH (09:46)
[2019-07-30] MEDS: RIVAROXABAN 20 MG TABLET PO SCH (09:46)
== END 2019-07-30 11:00 | DRG 482 ==
LOC: ER 17:26 → MS 19:34
PROVIDERS: ADMIT Family Medicine; ATTEND Internal Medicine
CPT/HCPCS: 36415; 73502; 73700; 80048; 80053; 81001; 85025; 85027; 87081; 93005; 96374; 96376; 97110; 97116; 97161; 97165; 97530; 97535; 99284; 99285; J2405